=== PATIENT | male | born 1935 | race Caucasian/White ===

== ENCOUNTER → 2016-12-04 | Outpatient (CLI) | payer OTHER, BC ==
[~2016-12-04] VITALS: Ht 167.6 cm; Wt 102.7 kg
[~2016-12-04] MED LIST: ADULT LOW DOSE81 MG PO; B12INJ IM; BIOFREEZE PAI3840 GM; CALTRATE-600 W1 EACH PO; CARVEDILOL25 MG PO; COREG25 MG; CRESTOR PO; FISH OIL 1,001000 M2 PO; LISINOPRIL10 MG PO; MAGNESIUM250 M1 PO; MULTIVITAMINS PO; NEURONTIN 300300 M1 PO; NEURONTIN 300M300 M2 PO; OXYCODONE HCL5 M1 PO; PROAIR HFA8.5 GM INTRAUTERI; ROXICODONE5 M1 PO; ROXICODONE5 M2 PO; ROXICODONE5 MG PO; SYMBICORT160 MCG/4. INH; VITAMIN B-625 MG PO; VITAMIN D400 UNI1 PO; VITAMIN E400 UNIT PO; VITAMINC500
--- NOTE | ~2016-12-04 | HPC ---
[facility] [address] [place] [address] PAIN MANAGEMENT CONSULTATION Name: GABRIEL MUÑIZ [facility] #: [facility] [id number] Admission: 12/04/16 Attend Phys: Jus Lal DO Discharge: Date of : 37 Report #: [id number] THIS REPORT FOR: //name// CC: Jus Coley III, MD DATE OF SERVICE: 12/04/2016 REFERRING PHYSICIAN: Calixto Coley III, MD. CHIEF COMPLAINT: Low back pain, right lower extremity pain with paresthesias. HISTORY OF PRESENT ILLNESS: As you know, the patient is a very pleasant 81-year-old male, who has returned today in followup visit for medication management. He feels medications are working beneficially. He is not deviated from his prescription use. He states that with the medication, he receives about 90% improvement in overall pain. He has requested refills on the medication at current dosing. He has requested no changes. He is denying any side effects with their use. He does state his functional capacity has much improved with the use of medication. Without the medications, he believes he would be debilitated. He returns today requesting refill on the medications. ALLERGIES: No known drug allergies. CURRENT MEDICATIONS: Oxycodone 5 mg up to 6 a day, gabapentin 300 mg 3 tabs t.i.d., magnesium 250 mg 2 tabs per day, carvedilol 25 mg half tab p.o. b.i.d., lisinopril 10 mg per day, albuterol 2 puffs q. 4 hours p.r.n., calcium carbonate 1 tab per day, vitamin B6 25 mg per day, vitamin E 400 units per day, multivitamin 1 tab per day, Symbicort 1 puff twice a day, aspirin 81 mg per day. SOCIAL HISTORY: The patient denies tobacco. Denies IV or illicit drug use. Denies any chronic alcohol abuse. He is accompanied by his , who is in room today. IMAGING: No new imaging available. PHYSICAL EXAMINATION: VITAL SIGNS: Blood pressure 138/82, pulse 67, respiratory rate 20, unlabored. The patient is 95% on room air, height 5 feet 6 inches tall, weight 226.4 pounds, BMI calculated 36.6. GENERAL: Well-developed, well-nourished, and well-hydrated. Exogenously obese 81-year-old male appearing his stated age. Placing current pain score at 8/10. HEENT: Normocephalic and atraumatic. Pupils are equal, round, and reactive to light. Hearing is worsening. EXTREMITIES: Show no clubbing, no cyanosis, [place] [address] PAIN MANAGEMENT CONSULTATION Name: GABRIEL MUÑIZ Hu Room #: REG [facility] Azul#: [id number] Admission: 12/04/16 Attend Phys: Jus Lal DO Discharge: Date of : 37 Report #: [id number] MUSCULOSKELETAL: Lower extremity strength equal and symmetrical at 5/5. Intact to light touch from L1 through S2 dermatomes. Seated straight leg raising negative. Supine straight leg raising positive on the left. Carla's test negative. Gait is antalgic. Utilizing a cane for ambulation. ASSESSMENT: 1. Symptomatic lumbar radiculopathy. 2. Spinal stenosis of the lumbar spine. 3. Lumbosacral spondylosis with radiculopathy. 4. Displacement of lumbar intervertebral disk with radiculopathy. 5. Facet arthropathy of lower lumbar spine. 6. Lumbar degeneration. 7. Chronic intractable pain. PLAN: 1. The patient has returned today in followup visit requesting medication management. He is denying any side effects to the medication, does feel the medications are working beneficially. The patient indicates pain at no greater than 8/10 today. This is mainly with ambulation. He is requesting refill on medications. He does not wish to undergo interventional treatments. He does not wish to consider spinal cord stimulator or surgical options at this juncture. He has returned requesting refill on medications in hopes of continued analgesic benefit for which he indicates up to 70-80% improvement in overall pain despite the 8/10 pain level reported today. 2. The patient was provided prescription of oxycodone 5 mg dose 1 tab every 3-1/2 hours p.r.n. for pain, #180 releases of today, 4 weeks from today, and 8 weeks from today. 3. The patient was provided a prescription of gabapentin 300 mg dose 3 tabs p.o. t.i.d., #270, 2 refills. 4. The patient to return to our clinic in 3 months for medication therapy, earlier if he wishes to undergo interventional treatments. By: [id number] Jus Lal DO /nt
[2016-12-04 10:29] VITALS: BP 138/82
== END ==
LOC: PAIN 06:45
DX: M47.27 Other spondylosis with radiculopathy, lumbosacral region (principal); M48.06 Spinal stenosis, lumbar region; G89.29 Other chronic pain; Z87.891 Personal history of nicotine dependence; I10 Essential (primary) hypertension

== ENCOUNTER → 2017-02-19 | Outpatient (CLI) | payer OTHER, BC ==
[~2017-02-19] VITALS: Ht 167.6 cm; Wt 101.5 kg
--- NOTE | ~2017-02-19 | HPC ---
[facility] [address] [place] [address] PAIN MANAGEMENT CONSULTATION Name: GABRIEL MUÑIZ Room #: REG [facility] Christopher.#: [id number] Admission: 02/19/17 Attend Phys: Jus Lal DO Discharge: Date of : 37 Report #: [id number] THIS REPORT FOR: //name// CC: Jus Coley DATE OF SERVICE: 02/19/2017 CHIEF COMPLAINT: Low back pain, right lower extremity pain and paresthesias. HISTORY OF PRESENT ILLNESS: As you know, patient is a 81-year-old male who returns today in followup visit for medication management. We have had a long discussion with the patient about medication therapy in the past. He does feel the medications are working beneficially. He has requested refill on medications. He is placing pain score today at around 8/10. Despite this elevated pain level, he feels medications are beneficial providing 75-80% improvement in overall symptoms. He returns today in followup visit for medication management for his symptomatic lumbar radiculopathy secondary to severe and progressively worsening spinal stenosis. He denies any side effects to his current medication therapy, wishing to continue this current dosing regimen. ALLERGIES: NO KNOWN DRUG ALLERGIES. CURRENT MEDICATIONS: Oxycodone, gabapentin, magnesium, carvedilol, lisinopril, albuterol, calcium carbonate, vitamin B, vitamin D, vitamin E, multivitamin, Symbicort and aspirin. SOCIAL HISTORY: The patient denies tobacco, IV or illicit drug use. Denies any chronic alcohol use. He is accompanied by his . IMAGING: No new imaging available. PHYSICAL EXAMINATION: VITAL SIGNS: Blood pressure 138/92, pulse 66, respiratory rate 18, unlabored. The patient is 95% on room air. BMI calculated 36.6. GENERAL: Well developed, well nourished, well hydrated 81-year-old male appearing stated age. He is placing current pain score at approximately 8/10. HEENT: Normocephalic, atraumatic. Pupils equal, round, reactive to light. Extraocular muscles are intact. Hearing is poor. EXTREMITIES: Show no clubbing, no cyanosis, no edema. MUSCULOSKELETAL: Lower extremity strength equal and symmetrical 5/5, intact to light touch from L1 through S2 dermatomes. Seated straight leg raising negative. Supine straight leg raising positive on the left. [address] [address] PAIN MANAGEMENT CONSULTATION Name: GABRIEL MUÑIZ Room #: REG [facility] Latha#: [id number] Admission: 02/19/17 Attend Phys: Jus Lal DO Discharge: Date of : 37 Report #: [id number] ASSESSMENT: 1. Symptomatic lumbar radiculopathy. 2. Spinal stenosis of lumbar spine, progressively worsening. 3. Lumbosacral spondylosis with radiculopathy. 4. Displacement of lumbar intervertebral disk with radiculopathy. 5. Facet arthropathy of lower lumbar spine. 6. Lumbar degeneration. 7. Chronic intractable pain. PLAN: 1. The patient returns today in followup visit indicating good analgesic benefit with current medications. He wishes to continue the medication as currently prescribed. Despite the fact the patient is providing a pain score today of 8/10, he states he is receiving upwards of 70% improvement in symptoms with medications. He returns today requesting specifically refills on medications. 2. The patient was provided prescription of oxycodone 5 mg dose 1 tab every 3 hours p.r.n. for pain, I have given the patient #180, releases of today, 4 weeks from today, 8 weeks from today, 3 months' worth of medication. As you are aware, we have trialed the patient on a long acting medication, but due to cost, he could not continue that therapy, he needed to reduce back to the generic oxycodone. He has been doing well with these medications. 3. The patient was provided a prescription of gabapentin 300 mg dose 3 tabs p.o. t.i.d., 900 mg 3 times a day total, 270 tablets, 2 refills. 4. The patient will return to our clinic in 3 months for ongoing medical therapy, earlier if he wishes to discuss interventional treatments. <ELECTRONICALLY SIGNED> By: Jus Lal DO 02/22/17 1359 [id number] 1317 Jus Lal DO /nt
[2017-02-19 10:07] VITALS: BP 113/61
== END | disposition home or self-care (01) ==
LOC: PAIN 07:05
DX: M54.16 Radiculopathy, lumbar region (principal); M48.06 Spinal stenosis, lumbar region; M47.817 Spondylosis without myelopathy or radiculopathy, lumbosacral region; G89.29 Other chronic pain; M51.36 Other intervertebral disc degeneration, lumbar region; M51.26 Other intervertebral disc displacement, lumbar region

== ENCOUNTER → 2017-08-27 | Outpatient (CLI) | payer OTHER, BC ==
[~2017-08-27] VITALS: Ht 172.7 cm; Wt 103.4 kg
[~2017-08-27] MED LIST changes: +LIPITOR 20 MG T20 M1 PO
--- NOTE | ~2017-08-27 | HPC ---
[facility] [address] [place] [address] PAIN MANAGEMENT CONSULTATION Name: GABRIEL MUÑIZ [facility] #: [facility] [id number] Admission: 08/27/17 Attend Phys: Jus Lal DO Discharge: Date of : 37 Report #: [id number] THIS REPORT FOR: //name// CC: Jus Coley III, MD DATE OF SERVICE: 08/27/2017 REFERRING PHYSICIAN: Calixto Coley III, MD CHIEF COMPLAINT: Low back pain, right lower extremity pain with paresthesias. HISTORY OF PRESENT ILLNESS: As you know, the patient is a very pleasant 81-year-old male who returns today in followup visit for medication management. The patient states medications are working beneficially for pain control. The patient is placing pain score no greater than 6/10, states pain is sharp and aching in sensation, exacerbated with sitting, walking and standing, improves with medications and rest. He denies new injury or new trauma that may have led to progression of symptoms. He states that medications are beneficial providing about 60-70% improvement in overall pain. Again, the patient is reporting no side effects to the medication including somnolence, decrease mental acuity, disorientation, confusion, or constipation issues. ALLERGIES: No known drug allergies. CURRENT MEDICATIONS: Gabapentin, oxycodone, magnesium, carvedilol, lisinopril, omega-3 fish oil, vitamin B12, albuterol, ascorbic acid, Biofreeze, calcium carbonate, aspirin, Symbicort, vitamin E and vitamin B6. SOCIAL HISTORY: The patient denies current tobacco use. Denies IV or illicit drug use. Denies any chronic alcohol use. He is retired. He is accompanied by his who is present in room. IMAGING: No new imaging available. 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 He has no history of rheumatoid arthritis. He does use a cane for ambulation. Thus, he is a slight fall risk, he has experienced one fall in the last 3 months. We have discussed with the patient safety protocols and improved his function with his cane while he was here today. Blood thinners, none. He does have a history of hypertension for which he is treated medically. He is on opioids, has been on opioids for years. He is under opioid contract with [facility]. His risk assessment for opioid abuse is low. Functional assessment shows 47/70, [id number] interference of daily activities secondary to pain. [facility] [address] [place] [address] PAIN MANAGEMENT CONSULTATION Name: GABRIEL MUÑIZ Room #: [facility] [id number] Admission: 08/27/17 Attend Phys: Jus Lal DO Discharge: Date of : 37 Report #: [id number] PHYSICAL EXAMINATION: VITAL SIGNS: Blood pressure 138/58, pulse 58, respiratory rate 20 and unlabored, the patient is 98% on room air, height 5 feet 8 inches tall, weight 228 pounds, and BMI calculated 34.7. GENERAL: Well-developed, well-nourished, well-hydrated 81-year-old male, he appears his stated age, placing current pain score at 6/10. HEENT: Normocephalic, atraumatic. Pupils are equal, round, and reactive to light. Extraocular muscles are intact. Hearing is decreased significantly. He is having difficulty with his hearing aids today. EXTREMITIES: Show no clubbing, no cyanosis, and no edema. MUSCULOSKELETAL: Lower extremity strength equal and symmetrical 5/5. He is intact to light touch from L1 through S2 dermatomes. Seated straight leg raising negative. Supine straight leg raising positive on the right. Carla's test negative. Modified Gaenslen's positive for axial back pain. Ankle clonus negative. ASSESSMENT: 1. Symptomatic lumbar radiculopathy. 2. Spinal stenosis of the lumbar spine. 3. Displacement of lumbar intervertebral disk with radiculopathy. 4. Lumbosacral spondylosis with radiculopathy. 5. Facet arthropathy of the lower lumbar spine. 6. Lumbar degeneration. 7. Chronic intractable pain. PLAN: 1. The patient returns today in followup visit for medication management. The patient feels medications are working beneficially for pain control. He has requested that we continue the medication at current dosing. He is denying side effects of somnolence, decrease mental acuity, disorientation, confusion, or mental slowing with the use of medication. He does have some constipation for which he treats with [id number] medications successfully. The patient overall feels he is doing well and wishes to continue therapy. 2. The patient was provided a prescription of oxycodone 5 mg dose 2 tabs 3 times a day, #180, release dates of today, 4 weeks from today, and 8 weeks from today. We had originally trial the patient on a 10 mg oxycodone dose, but the cost of medication was prohibitive, we started the 5 mg tablets for which he receives generic cost and this is much more cost effective for him. The total number of tablets 180 equates to 10 mg 3 times a day dosing and appropriate medication therapy for this patient. 3. The patient was provided a refill prescription of his gabapentin 300 mg dose 3 tabs p.o. at bedtime, given the patient #90 tablets, 2 refills, 3 months' worth of medication. 4. We will see the patient back in followup visit in 3 months for medication [facility] [address] [place] [address] PAIN MANAGEMENT CONSULTATION Name: LOGANGAILGABRIEL VERAS Hu Room #: REG CLJosh Azul#: [id number] Admission: 08/27/17 Attend Phys: Jus Lal DO Discharge: Date of : 37 Report #: [id number] therapy and to discuss other treatment options if necessary. He is always available to return for epidural injection if necessary. <ELECTRONICALLY SIGNED> By: Jus Lal DO 09/04/17 1130 0811 0834 Jus Lal DO /nt
[2017-08-27 10:14] VITALS: BP 138/58
== END ==
LOC: PAIN 07:10
DX: M48.061 Spinal stenosis, lumbar region without neurogenic claudication (principal); M51.16 Intervertebral disc disorders with radiculopathy, lumbar region; M47.27 Other spondylosis with radiculopathy, lumbosacral region; M46.86 Other specified inflammatory spondylopathies, lumbar region; G89.29 Other chronic pain

== ENCOUNTER → 2017-12-03 | Outpatient (CLI) | payer OTHER, BC ==
[~2017-12-03] VITALS: Ht 172.7 cm; Wt 104.1 kg
--- NOTE | ~2017-12-03 | HPC ---
[facility] [address] [place] [address] PAIN MANAGEMENT CONSULTATION Name: GABRIEL MUÑIZ Room #: REG [facility]ENGrzegorz.#: [id number] Admission: 12/03/17 Attend Phys: Jus Lal DO Discharge: Date of : 37 Report #: [id number] THIS REPORT FOR: //name// CC: Jus Coley III, MD DATE OF SERVICE: 12/03/2017 CHIEF COMPLAINT: Low back pain, right lower extremity pain with paresthesias. HISTORY OF PRESENT ILLNESS: As you know, the patient is a very pleasant 82-year-old male who returns today in followup visit for medication management. He feels medications are working beneficially for pain control. He states pain, no greater than 3/10. States pain medications do allow him to go about his activities of daily living. He states his pain remains sharp and aching when present, exacerbated with sitting and walking, improves with medications and rest. He returns requesting refill of medications for the next 3 months. He is denying any side effects such as somnolence, decrease in mental acuity. Disorientation or confusion with the use of therapies. ALLERGIES: No known drug allergies. CURRENT MEDICATIONS: Gabapentin, oxycodone, magnesium, carvedilol, lisinopril, omega-3 fish oil, vitamin B12, albuterol, ascorbic acid, Biofreeze, calcium carbonate, aspirin, Symbicort, vitamin E, vitamin B6 and Spiriva. SOCIAL HISTORY: The patient denies current tobacco use. He denies IV or illicit drug use. Denies any chronic alcohol use. He is retired, retired years ago, accompanied by his who is present in room today. IMAGING: No new imaging available. PQRS: The patient has osteoarthritis of the weightbearing joints, knees and hips mainly, no history of rheumatoid arthritis. He does use a cane for ambulation. He is a fall risk, but has not experienced a fall in the last 3 months. He is not on blood thinners. He is treated for hypertension. He has been on opioids for greater than 6 months and on a contract with [facility]. His opioid risk assessment is mild. Functional assessment 47/70 indicating severe interference of daily activities secondary to pain. PHYSICAL EXAMINATION: VITAL SIGNS: Blood pressure 123/65, pulse 60, respiratory rate 20, unlabored. The patient is 96% on room air. Height 5 feet 8 inches tall, weight 229.4 pounds, BMI calculated 34.9. GENERAL: Well-developed, well-nourished, well-hydrated, exogenously obese [address] [address] PAIN MANAGEMENT CONSULTATION Name: GABRIEL MUÑIZ Room #: REG [facility]#: [id number] Admission: 12/03/17 Attend Phys: Jus Lal DO Discharge: Date of : 37 Report #: [id number] 82-year-old male. He appears his stated age. He is in no acute distress, awake, alert and oriented x 3, current pain score 3/10. HEENT: Normocephalic, atraumatic. Pupils equal, round and reactive. There is noted a hyphema on the left eye lateral portion. Vision does not appear affected. Hearing is significantly decreased. He does have hearing aids in. NEUROLOGIC: He does appear to be a good historian. LUNGS: Clear. No wheeze, rhonchi or rales. CARDIOVASCULAR: Regular. No appreciable gallop or rub. ABDOMEN: Soft, obese, nontender. EXTREMITIES: Show no clubbing, no cyanosis, no edema. MUSCULOSKELETAL: Seated straight leg raising is negative. Supine straight leg raising positive right. Carla test is negative. Modified Gaenslen's is positive for axial low back pain. Ankle clonus negative. Babinski is negative. Gait is antalgic favoring right lower extremity over left. Muscle bulk and tone appears symmetrical in lower extremities. ASSESSMENT: 1. Symptomatic lumbar radiculopathy. 2. Spinal stenosis of the lumbar spine. 3. Displacement of lumbar intervertebral disk with radiculopathy. 4. Lumbosacral spondylosis with radiculopathy. 5. Facet arthropathy of lumbar spine. 6. Degeneration of lumbar spine. 7. Chronic intractable pain. PLAN: 1. The patient returns today in followup visit requesting refill on medications. The patient feels medications are working beneficially for pain control. The patient indicates pain level of around 3/10 today, which is excellent for the patient. He states this is completely tolerable level of pain and wishes to continue current medical therapy. He is denying side effects of somnolence, decrease in mental acuity, disorientation and confusion with the use of therapy. He requests refills for the next 3 months. 2. The patient was provided prescription of oxycodone 5 mg dose 2 tabs 3 times a day, #180 releases of today, 4 weeks from today, 8 weeks from today. The patient was originally trialed on the oxycodone 10 mg dose, but due to cost factor, he could not afford the 10 mg dose without acetaminophen. He wished to have Tylenol removed from the medication. We were able to provide the 5 mg dose, #180 tablets. His morphine equivalent is 45 morphine equivalents per day. 3. The patient will return to our clinic on an as needed basis for interventional treatments, otherwise, we will see him back in 3 months for medication management assuming stable on his medications at that time. By: [id number] Jus Lal DO /nt
[2017-12-03 10:35] VITALS: BP 123/65
== END ==
LOC: PAIN 06:15
DX: M47.27 Other spondylosis with radiculopathy, lumbosacral region (principal)

== ENCOUNTER → 2018-03-12 | Outpatient (CLI) | payer OTHER, BC ==
[~2018-03-12] VITALS: Ht 172.7 cm; Wt 101.7 kg
--- NOTE | ~2018-03-12 | HPC ---
[facility] [address] [place] [address] PAIN MANAGEMENT CONSULTATION Name: GABRIEL MUÑIZ Room #: REG [facility] Christopher.#: [id number] Admission: 03/12/18 Attend Phys: Jus Lal DO Discharge: Date of : 39 Report #: [id number] THIS REPORT FOR: //name// CC: Jus Coley DATE OF SERVICE: 03/12/2018 CHIEF COMPLAINT: Low back pain, bilateral lower extremity pain right greater than left. HISTORY OF PRESENT ILLNESS: As you know, the patient is a very pleasant 82-year-old male who returns today in followup visit for medication management. He feels medications are working beneficially for pain control. He is placing pain score at level of 6/10. He does report worsening difficulty with ambulating long distances and standing for long periods of time. This appears to be a progression of his spinal stenosis and subsequent symptomology. There is a possibility the patient does have bilateral hip arthropathy, though this has not been noted in imaging studies. He returns today in followup visit requesting refill on medications. He is denying any side effects with their use. He does find benefit with their continued use for pain control. ALLERGIES: No known drug allergies. CURRENT MEDICATIONS: Gabapentin, hydrocodone, magnesium, carvedilol, lisinopril, omega-3 fish oil, vitamin B12, albuterol, ascorbic acid, Biofreeze, calcium carbonate, aspirin, Symbicort, vitamin E, vitamin B6 and Spiriva. SOCIAL HISTORY: The patient denies current tobacco use. Denies IV or illicit drug use. Denies any chronic alcohol use. He is retired, has been retired for years. He is accompanied by his present in room today. IMAGING: No new imaging available. PQRS: The patient has osteoarthritis of the knees, reportedly hips and low back. No history of rheumatoid arthritis. He does use a cane for ambulation. He is a fall risk, but has not fallen in the last 3 months. He is not on blood thinners. He is treated for hypertension. He has been on opioids for greater than six months and has been in contract with [facility]. He has a low risk for opioid addiction. His functional assessment pain impact score is 47/70, severe. K-TRACS and MO-TRACS were performed today. The patient shows no concerning entries in these opioid tracking systems. [address] [address] PAIN MANAGEMENT CONSULTATION Name: GABRIEL MUÑIZ Room #: REG CLJosh Azul#: [id number] Admission: 03/12/18 Attend Phys: Jus Lal DO Discharge: Date of : 37 Report #: [id number] PHYSICAL EXAMINATION: VITAL SIGNS: Blood pressure 112/63, pulse 65, respiratory rate 16 and unlabored. The patient is 95% on room air. Height 5 feet 8 inches tall, weight 224.2 pounds, BMI calculated 34.1. GENERAL: Well-developed, well-nourished, well-hydrated exogenously obese 82-year-old male. He appears stated age, placing current pain score 6/10. HEENT: Normocephalic, atraumatic. Pupils equal, round, reactive to light. Speech fluent. Hearing is significantly decreased. EXTREMITIES: Show no clubbing, no cyanosis, no edema. MUSCULOSKELETAL: Seated straight leg raising negative. Supine straight leg raising remains positive on the right, negative left. Carla's test negative except for some upper buttock pain. Modified Gaenslen's positive for axial low back pain. ASSESSMENT: 1. Symptomatic lumbar radiculopathy. 2. Progressively worsening spinal stenosis of the lumbar spine. 3. Displacement of lumbar intervertebral disk with radiculopathy. 4. Lumbosacral spondylosis with radiculopathy. 5. Facet arthropathy of the lumbar spine. 6. Lumbar degeneration. 7. Chronic intractable pain. PLAN: 1. The patient returns today in followup visit for medication management. He feels medications are working beneficially for pain control. He is denying any side effects to the oxycodone or the gabapentin therapy and does feel good benefit with their use. He wishes to continue the medication at this time. We reviewed the fact that opiate medications are being used to provide analgesia adequate to support activities of daily living, not attempting to achieve a specific pain score on the 0-10 Visual Analog Scale. The current opiate medications are providing sufficient analgesia to allow the patient to participate in activities of daily living. The patient is not exhibiting any aberrant behavior suggestive of drug diversion. The patient is not having any adverse reactions to medications. The patient is not suffering from daytime somnolence or mental acuity changes. The patient is managing opiate-induced constipation with appropriate amqg-xmd-silixuq agents and dietary considerations. The patient was counseled on concern for caution with operating a motor vehicle while using opiate medications. A physical exam was performed and the patient's functional status was evaluated. All patients with back pain were advised against the bed rest greater than 4 days and were advised to return to normal activities. Pain score assessment was noted and the treatment plan was reviewed with the patient. All current medications, both prescribed and OTC were reviewed and reconciled on the [address] [address] PAIN MANAGEMENT CONSULTATION Name: GABRIEL MUÑIZ Room #: REG [facility]#: [id number] Admission: 03/12/18 Attend Phys: Jus Lal DO Discharge: Date of : 37 Report #: [id number] electronic medical record. Tobacco screening was accomplished and smoking cessation was advised when indicated. BMI was noted and diet/exercise modification was recommended for all patients following outside normal parameters. I reviewed with the patient today their responsibilities to safeguard prescription medications, reviewed their responsibility to utilize medications only as prescribed by the physician. They are to seek and receive pain medications only from 1 physician group ( [facility]). They are to use 1 pharmacy and keep the clinic informed if they change pharmacies. Their responsibilities include making followup visits in a timely fashion and to avoid abrupt discontinuation of medication usage. Their responsibilities further include bringing their medications (bottles from the pharmacy with residual pills) to the visit for possible confirmation of pill counts and the patient understands it is their responsibility to submit to random drug screens to ensure both that the medications prescribed are present, and that no other controlled substances are present. All prescriptions provided today were generated electronically. 2. The patient was provided prescription of oxycodone 5 mg dose 1 tab every 4 hours p.r.n. pain, I have given the patient #180, releases of today, 4 weeks from today, 8 weeks from today, 3 months' worth of medication. I have advised the patient at this time our concerns about the continued use of immediate release formulation. Unfortunately, the patient cannot afford the long-acting formulations of medications as they are not covered by his insurance. We had to resort to the oxycodone at the immediate release formulation to be able to provide the patient with benefit. 3. We have called in a prescription of the patient's gabapentin 300 mg dose 3 tabs p.o. t.i.d., number 270. He was given 2 refills, 3 months' worth of medication. 4. We will see the patient back in followup visit in 3 months, earlier if adjustments need to be made in medication therapy or he continues to experience worsening functional capacity and we will discuss about other options including epidural injections and surgical options. By: [id number] Jus Lal DO /nt
[2018-03-12 10:07] VITALS: BP 112/63
== END ==
LOC: PAIN 06:58
DX: M47.27 Other spondylosis with radiculopathy, lumbosacral region (principal); M51.16 Intervertebral disc disorders with radiculopathy, lumbar region; M12.88 Other specific arthropathies, not elsewhere classified, other specified site; G89.4 Chronic pain syndrome

== ENCOUNTER → 2018-06-18 | Outpatient (CLI) | payer OTHER, BC ==
[~2018-06-18] VITALS: Ht 172.7 cm; Wt 101.6 kg
--- NOTE | ~2018-06-18 | HPC ---
[facility] [address] [place] [address] PAIN MANAGEMENT CONSULTATION Name: GABRIEL MUÑIZ Room #: [facility] [id number] Admission: 06/18/18 Attend Phys: Jus Lal DO Discharge: Date of : 37 Report #: [id number] THIS REPORT FOR: //name// CC: Jus Coley III, MD DATE OF SERVICE: 06/18/2018 CHIEF COMPLAINT: Low back pain, bilateral lower extremity pain, right greater than left. HISTORY OF PRESENT ILLNESS: As you know, the patient is a very pleasant 82-year-old male returning in followup visit for continuation of medication management. The patient feels medications are working beneficially for pain control despite the elevated pain level of 6/10 today. He reports no side effects to the medication except for transient constipation, he treats with mxpu-mxu-qvavxwl medications successfully. He returns today requesting refill on medications. He states he has been in his normal state of health over the past 3 months. Cold weather has exacerbated his symptoms mildly but nothing to be concerned of based on the patient's report today. He returns today requesting refill on his therapy. ALLERGIES: No known drug allergies. CURRENT MEDICATIONS: Gabapentin, hydrocodone, magnesium, carvedilol, lisinopril, omega-3 fish oil, vitamin B12, albuterol, ascorbic acid, Biofreeze, calcium carbonate, aspirin, Symbicort, vitamin E, vitamin B6, Spiriva and oxycodone. SOCIAL HISTORY: The patient denies tobacco use. Denies IV or illicit drug use. Denies any chronic alcohol use. He is retired, retired years ago, accompanied by his who was present in room today. IMAGING: No new imaging available. PQRS: The patient has known bilateral low back osteoarthritis, bilateral hip osteoarthritis and bilateral knee osteoarthritis, no rheumatoid arthritis. He does use a cane for ambulation. He is a fall risk, but has not had a fall in last 3 months. He is not on blood thinners. He is treated for hypertension. He has been on opioids for greater than 6 weeks with a xxzm-yh-bhewdopt potential for addiction. Pain impact score indicates pain of 47/70, moderate to severe. Pain intensity today /10. PHYSICAL EXAMINATION: VITAL SIGNS: Blood pressure 112/63, pulse 65, respiratory rate 16 and [facility] [address] [place] [address] PAIN MANAGEMENT CONSULTATION Name: GABRIEL MUÑIZ Room #: REG [facility] M.Dale.#: [id number] Admission: 06/18/18 Attend Phys: Jus Lal DO Discharge: Date of : 37 Report #: [id number] unlabored. The patient is 95% on room air. Height 5 feet 8 inches tall, weight 224.2 pounds, BMI calculated 34.1. GENERAL: Well-developed, well-nourished, well-hydrated, exogenously obese 82-year-old male appearing stated age, placing current pain score 6/10. HEENT: Normocephalic, atraumatic. Pupils equal, round, reactive to light. Speech is fluent. Hearing decreased significantly. Hearing aids are in place. LUNGS: Clear, no wheeze, rhonchi or rales. CARDIOVASCULAR: Regular. No appreciable gallop, no rub. ABDOMEN: Soft, obese, nontender. EXTREMITIES: Show no clubbing, no cyanosis, no edema. MUSCULOSKELETAL: Lower extremity strength is symmetrical 5/5, muscle bulk and tone is symmetrical. He is intact to light touch from L1 through S2 dermatomes. Seated straight leg raising negative. Supine straight leg raising positive on right. Gait is antalgic favoring right lower extremity over left. Standing from a seated position exacerbates symptoms. ASSESSMENT: 1. Symptomatic lumbar radiculopathy. 2. Progressively worsening spinal stenosis of the lumbar spine. 3. Displacement of lumbar intervertebral disk with radiculopathy. 4. Lumbosacral spondylosis with radiculopathy. 5. Facet arthropathy of the lumbar spine. 6. Lumbar degeneration. 7. Chronic intractable pain. PLAN: 1. The patient returns today in followup visit requesting refill on medication. He feels medications are working beneficially for pain control. He has requested refills to be provided today to continue analgesic benefit. He reports only mild constipation issues that are intermittent in nature, he treats with jmvv-fff-aejswpy medications with good success. He returns requesting the refills on the medication. 2. We reviewed the fact that opiate medications are being used to provide analgesia adequate to support activities of daily living, not attempting to achieve a specific pain score on the 0-10 Visual Analog Scale. The current opiate medications are providing sufficient analgesia to allow the patient to participate in activities of daily living. The patient is not exhibiting any aberrant behavior suggestive of drug diversion. The patient is not having any adverse reactions to medications. The patient is not suffering from daytime somnolence or mental acuity changes. The patient is managing opiate-induced constipation with appropriate vpqu-kaj-dfryocd agents and dietary considerations. The patient was counseled on concern for caution with operating a motor vehicle while using opiate medications. A physical exam was performed and the patient's functional status was evaluated. All patients with back pain were advised against the bed rest greater than [address] [address] PAIN MANAGEMENT CONSULTATION Name: GABRIEL MUÑIZ Room #: REG [facility]#: [id number] Admission: 06/18/18 Attend Phys: Jus Lal DO Discharge: Date of : 37 Report #: [id number] days and were advised to return to normal activities. Pain score assessment was noted and the treatment plan was reviewed with the patient. All current medications, both prescribed and OTC were reviewed and reconciled on the electronic medical record. Tobacco screening was accomplished and smoking cessation was advised when indicated. BMI was noted and diet/exercise modification was recommended for all patients following outside normal parameters. I reviewed with the patient today their responsibilities to safeguard prescription medications, reviewed their responsibility to utilize medications only as prescribed by the physician. They are to seek and receive pain medications only from 1 physician group ( [facility]). They are to use 1 pharmacy and keep the clinic informed if they change pharmacies. Their responsibilities include making followup visits in a timely fashion and to avoid abrupt discontinuation of medication usage. Their responsibilities further include bringing their medications (bottles from the pharmacy with residual pills) to the visit for possible confirmation of pill counts and the patient understands it is their responsibility to submit to random drug screens to ensure both that the medications prescribed are present, and that no other controlled substances are present. All prescriptions provided today were generated electronically. 3. The patient was provided prescription of oxycodone 5 mg dose 1 tab every 4 hours p.r.n. for pain, I have given the patient #180 tablets releasing today, 4 weeks from today, 8 weeks from today, 3 months' worth of medication. Again, we discussed the possibility of placing the patient on long-acting medication, but using third alliance party payer, he is unwilling to cover this medication and the cost is prohibitive. We will keep the patient on oxycodone 5 mg immediate release formulation. 4. The patient was provided prescription of gabapentin 300 mg dose 3 tabs p.o. t.i.d., I have given the patient #270 tablets, 2 refills, 3 months' worth of medication. 5. The patient will return to our clinic in 3 months for medication management. He may return earlier for adjustments in therapy if necessary. By: [id number] Jus Lal DO /nt
[2018-06-18 10:48] VITALS: BP 144/64
== END ==
LOC: PAIN 06:36
DX: M54.5 Low back pain (principal); M25.551 Pain in right hip; M25.552 Pain in left hip; G89.29 Other chronic pain; M79.604 Pain in right leg; M19.90 Unspecified osteoarthritis, unspecified site; Z87.891 Personal history of nicotine dependence; Z79.891 Long term (current) use of opiate analgesic; Z79.899 Other long term (current) drug therapy

== ENCOUNTER → 2018-10-23 | Outpatient (CLI) | payer OTHER, BC ==
[~2018-10-23] VITALS: Ht 172.7 cm; Wt 87.1 kg
[2018-10-23 13:17] VITALS: BP 143/76
--- NOTE | 2018-10-23 13:25 | NUR ---
Pain Clinic Assessment: 1. History of Osteoarthritis: spine History of Rheumatoid Arthritis: Not Applicable 2. Height: 5 ft. 8 in. 172.7 cm. Weight: 192.0 lb. oz. 87.091 kg. Patient's BMI: 29.2 3. Vital Signs: BP: 143/76 Pulse: 71 Resp: 16 Temp: 02 Sat: 100 ECG Mon: 4. Pain Intensity: 1 5. Fall Risk: Dizziness: N Needs help standing or walking: N Fallen in the last 3 months: N Fall risk comments: 6. Patient on Blood Thinner: None 7. History of Hypertension: Y 8. Opioid Therapy greater than 6 weeks: Y Opiate Contract Signed: 02/21/16 9. Risk Assessment Tool Provided: 0-low 10. Functional Assessment Tool: 11. Recreational Drug Use: Never Drug Type: Tobacco Use: Former Smoker Tobacco Type: Amount or Packs/day: How Many Years: Alcohol Use: No Frequency: Quant:
--- NOTE | 2018-10-27 08:01 | HPC ---
[facility] [address] [place] [address] PAIN MANAGEMENT CONSULTATION Name: GABRIEL MUÑIZ Room #: REG [facility] Latha#: [id number] Admission: 10/23/18 ������������������ Attend Phys: Cherie Olmedo Discharge: ������������������ Date of : 37 Report #: [id number] THIS REPORT FOR: //name// CC: Cherie Olmedo [facility] DATE OF SERVICE: 10/23/2018 CHIEF COMPLAINT: Low back pain. HISTORY OF PRESENT ILLNESS: This is a very pleasant 83-year-old gentleman who returns to the pain clinic today for refill of his medications. He tells me that he is doing quite well with his current medications for his lower back and bilateral hip pain, rating his pain score as 1/10. Said it is worse when he is walking and sitting. The medication and resting make it feel better. He does tell me with his 's help due to his hearing issues that he will be getting a cochlear implant in the next few months. We are using a dry erase board to help communicate today. Evidently, this gentleman had had a rash that started in his legs that then spread to his arms and then to his abdomen and soon was the entire body. He did go to [facility] where he was admitted. His legs at that time had swollen quite significantly and were oozing from open sores in his lower legs. While he was there, he evidently fell and then went to a rehab center where his legs slowly got better. Today, they are slightly reddened with no edema. The patient tells me he has also changed his diet since that hospitalization in the past month and he is feeling much better. The patient denies any constipation from his narcotic use and just would like a refill of his medications today. ALLERGIES: No known drug allergies. CURRENT LIST OF MEDICATIONS: Oxycodone 5 mg 2 tablets 3 times a day, gabapentin 900 mg 3 times a day, magnesium 250 mg daily, carvedilol 12.5 mg b.i.d., fish oil 1000 mg capsules weekly, vitamin B12 daily, albuterol inhaler as needed, vitamin C daily, Caltrate 600 with vitamin D daily, vitamin B6 weekly, vitamin E every 2 weeks, multivitamin daily, 81 mg aspirin daily. PQRS: 1. The patient has osteoarthritis of his spine. He denies any rheumatoid arthritis. 2. Height is 5 feet 8 inches, weight is 192, BMI is 29. 3. Vital signs: 143/76, pulse is 71, respirations 16, oxygen sat is 100%. Pain score today is 1/10. 4. Fall risk: He denies dizziness. He uses a cane for walking and he did fall in the hospital in the last 3 months. 4. The patient is not on any blood thinners, does take medicine for hypertension. [facility] [address] [place] [address] PAIN MANAGEMENT CONSULTATION Name: GABRIEL MUÑIZ Room #: REG [facility] Azul#: [id number] Admission: 10/23/18 ������������������ Attend Phys: Cherie Olmedo Discharge: ������������������ Date of : 37 Report #: [id number] 5. Opioid therapy is greater than 6 weeks; therefore, an opioid signed contract is on the chart. 6. Risk assessment tool is low. Functional assessment is . 7. Recreational drug use, he denies. He is a former smoker and does not drink alcohol. We checked the prescription monitoring system. The patient is filling appropriately with his medications from our doctors. The tells me that he safeguards his medications. PHYSICAL EXAMINATION: GENERAL: This is a well-developed, well-nourished, well-hydrated 83-year-old gentleman who appears his stated age, placing his current pain score as 1/10 today. HEENT: Normocephalic, atraumatic. Pupils are equal, round and reactive to light. The patient is significantly hard of hearing with hearing aids in place, awaiting cochlear implant. EXTREMITIES: No clubbing, no cyanosis. Does have 1+ edema with redness noted in his lower extremities. MUSCULOSKELETAL: Lower extremity strength judged to be 5/5. Muscle bulk and tone are symmetrical. Gait is antalgic, using a cane today, standing from a sitting position does cause pain across his lower back and to his sacroiliac area. ASSESSMENT: 1. Symptomatic lumbar radiculopathy. 2. Spinal stenosis of the lumbar spine. 3. Displacement of lumbar vertebral disk with radiculopathy. 4. Facet arthroscopy of the lumbar spine. 5. Lumbar degeneration. 6. Chronic intractable pain. We reviewed the fact that opiate medications are being used to provide analgesia adequate to support activities of daily living, not attempting to achieve a specific pain score on the 0-10 Visual Analog Scale. The current opiate medications are providing sufficient analgesia to allow the patient to participate in activities of daily living. The patient is not exhibiting any aberrant behavior suggestive of drug diversion. The patient is not having any adverse reactions to medications. The patient is not suffering from daytime somnolence or mental acuity changes. The patient is managing opiate-induced constipation with appropriate obhv-hwf-kxdbsks agents and dietary considerations. The patient was counseled on concern for caution with operating a motor vehicle while using opiate medications. A physical exam was performed and the patient's functional status was evaluated. All patients with back pain were advised against the bed rest greater than [address] [place] [address] PAIN MANAGEMENT CONSULTATION Name: GABRIEL MUÑIZ Room #: REG [facility].#: [id number] Admission: 10/23/18 ������������������ Attend Phys: Cherie ADMISSIONS DEAN Shara Discharge: ������������������ Date of : 37 Report #: [id number] days and were advised to return to normal activities. Pain score assessment was noted and the treatment plan was reviewed with the patient. All current medications, both prescribed and OTC were reviewed and reconciled on the electronic medical record. Tobacco screening was accomplished and smoking cessation was advised when indicated. BMI was noted and diet/exercise modification was recommended for all patients following outside normal parameters. I reviewed with the patient today their responsibilities to safeguard prescription medications, reviewed their responsibility to utilize medications only as prescribed by the physician. They are to seek and receive pain medications only from 1 physician group ( [facility]). They are to use 1 pharmacy and keep the clinic informed if they change pharmacies. Their responsibilities include making followup visits in a timely fashion and to avoid abrupt discontinuation of medication usage. Their responsibilities further include bringing their medications (bottles from the pharmacy with residual pills) to the visit for possible confirmation of pill counts and the patient understands it is their responsibility to submit to random drug screens to ensure both that the medications prescribed are present, and that no other controlled substances are present. All prescriptions provided today were generated electronically. PLAN: 1. We discussed treatment options with the patient today. The patient and family tell me that he is doing quite well on his current oxycodone dose of 5 mg 1-2 tablets 3 times a day and gabapentin 900 mg 3 times a day. I would like refills of both of those medicines today. They were provided for today for 8-week releases. 2. We did talk about this patient's rash that he had in his lower extremities that did eventually go throughout his rest of his body and the swelling that was noted in his legs. I told him that sometimes Neurontin does cause edema in lower extremities. told me that he was eating significant amounts of sodium high foods since his hospitalization they have decreased those plus his swelling has decreased since they changed his diet significantly. The patient has also been able to decrease 2 of his cardiac medications that he had started on previously, so therefore we will make no changes in his medications today, but just to keep them reminded that in the future that may cause swelling as a possible side effect. 3. The patient is seen with Dr. Plata who collaborated care today also. ��������������������������������������������� <ELECTRONICALLY SIGNED> ���������������������������������������� By: Cherie Olmedo ��������������������������������������������� 10/27/18 0801 [id number] Cherie Olmedo /ryan
== END ==
LOC: PAIN 10-21 13:40
DX: M51.16 Intervertebral disc disorders with radiculopathy, lumbar region (principal); M48.061 Spinal stenosis, lumbar region without neurogenic claudication; G89.4 Chronic pain syndrome; Z79.899 Other long term (current) drug therapy

== ENCOUNTER → 2019-05-12 | Outpatient (CLI) | payer OTHER, BC ==
[~2019-05-12] VITALS: Ht 175.3 cm; Wt 82.2 kg
[~2019-05-12] MED LIST changes: +NEURONTIN300 MG PO; +TRIAMCINOLONE A15 G3 TOP
[2019-05-12 11:06] VITALS: BP 111/55
--- NOTE | 2019-05-12 11:12 | NUR ---
Pain Clinic Assessment: 1. History of Osteoarthritis: spine History of Rheumatoid Arthritis: Not Applicable 2. Height: 5 ft. 9 in. 175.3 cm. Weight: 181.2 lb. oz. 82.192 kg. Patient's BMI: 26.7 3. Vital Signs: BP: 111/55 Pulse: 67 Resp: 16 Temp: 02 Sat: 95 ECG Mon: 4. Pain Intensity: 6 5. Fall Risk: Dizziness: N Needs help standing or walking: Y Fallen in the last 3 months: N Fall risk comments: 6. Patient on Blood Thinner: None 7. History of Hypertension: Y 8. Opioid Therapy greater than 6 weeks: Y Opiate Contract Signed: 02/21/16 9. Risk Assessment Tool Provided: 0-low 10. Functional Assessment Tool: 11. Recreational Drug Use: Never Drug Type: Tobacco Use: Former Smoker Tobacco Type: Amount or Packs/day: How Many Years: Alcohol Use: No Frequency: Quant:
--- NOTE | 2019-05-13 08:34 | HPC ---
[facility] [address] [place] [address] PAIN MANAGEMENT CONSULTATION Name: GABRIEL MUÑIZ Room #: REG [facility] Christopher.#: [id number] Admission: 05/12/19 Attend Phys: Cherie Olmedo Discharge: Date of : 37 Report #: [id number] THIS REPORT FOR: //name// CC: Cherie Olmedo [facility] DATE OF SERVICE: 05/12/2019 CHIEF COMPLAINT: Low back pain and bilateral hip pain. HISTORY OF PRESENT ILLNESS: This is a very pleasant 83-year-old gentleman who returns to the pain clinic today for a refill of his medications that he uses to help treat his ongoing low back, bilateral hip pain and left leg pain. He reports a pain score of 6/10 today that is an aching, sharp pain, worse when he walks and stands and weather changes. His medication is very helpful as well as resting. The patient tells me that he has been having significant respiratory issues with the weather changes recently that has also flared some of his pain with the weather changes, so his pain score is slightly higher than normal. He also reports that he continues to lose weight. He is down a total of 40 pounds since November due to significant diet change of no longer eating ice cream or fatty foods and reducing the plate size that they use at dinner time. He feels much better since he has lost this weight. ALLERGIES: No known drug allergies. CURRENT LIST OF MEDICATIONS: Gabapentin 900 mg t.i.d., oxycodone 5 mg 2 tablets t.i.d., triamcinolone ointment, magnesium, carvedilol 12.5 mg b.i.d., fish oil, vitamin B12, vitamin C, Carafate, vitamin B6, vitamin E, multivitamin and aspirin. PQRS: 1. He has arthritic changes in his spine. Denies any rheumatoid arthritis. 2. Height is 5 feet 9 inches, weight is 181, BMI is 26. 3. Vital signs 111/55, pulse is 67, respirations 16, oxygen sat is 95. 4. Pain score 6/10. 5. Denies dizziness. Does need help walking, uses a cane, has not fallen in the last 3 months. The patient is not on any blood thinners, but does take medicine for hypertension. 6. Opioid therapy is greater than 6 weeks; therefore, an opioid signed contract is on the chart. Risk assessment tool is low. Functional assessment is 10/02. 7. Recreational drug use, he denies. He is a former smoker and does not drink alcohol. According to the prescription monitoring system, the patient is filling [address] [address] PAIN MANAGEMENT CONSULTATION Name: GABRIEL MUÑIZ Room #: REG [facility] Latha#: [id number] Admission: 05/12/19 Attend Phys: Cherie Olmedo Discharge: Date of : 37 Report #: [id number] appropriately and is due today for his medications. We will check a random drug screen on this patient in the future. PHYSICAL EXAMINATION: GENERAL: This is a well-developed, well-nourished, hydrated 83-year-old gentleman who appears his stated age, placing his current pain score at 6/10 today. HEENT: Normocephalic, atraumatic. Pupils equal, round and reactive to light. The patient has hearing aids in place, still has significant hearing deficits. EXTREMITIES: No clubbing, no cyanosis, no edema. MUSCULOSKELETAL: Lower extremity strength judged to be 5/5 in all major muscle groups. He has an antalgic gait and uses a cane at all times. Tenderness in his left sacroiliac region today that is radiating into his right hip and tenderness across his lumbosacral spine. ASSESSMENT: 1. Symptomatic lumbar radiculopathy. 2. Spinal stenosis of the lumbar spine. 3. 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 4. Facet arthroscopy of the lumbar spine. 5. Lumbar degeneration. 6. Chronic intractable pain. We reviewed the fact that opiate medications are being used to provide analgesia adequate to support activities of daily living, not attempting to achieve a specific pain score on the 0-10 Visual Analog Scale. The current opiate medications are providing sufficient analgesia to allow the patient to participate in activities of daily living. The patient is not exhibiting any aberrant behavior suggestive of drug diversion. The patient is not having any adverse reactions to medications. The patient is not suffering from daytime somnolence or mental acuity changes. The patient is managing opiate-induced constipation with appropriate rsnr-ckq-ybksnlb agents and dietary considerations. The patient was counseled on concern for caution with operating a motor vehicle while using opiate medications. A physical exam was performed and the patient's functional status was evaluated. All patients with back pain were advised against the bed rest greater than 4 days and were advised to return to normal activities. Pain score assessment was noted and the treatment plan was reviewed with the patient. All current medications, both prescribed and OTC were reviewed and reconciled on the electronic medical record. Tobacco screening was accomplished and smoking cessation was advised when indicated. BMI was noted and diet/exercise modification was recommended for all patients following outside normal parameters. I reviewed with the patient today their responsibilities to [address] [address] PAIN MANAGEMENT CONSULTATION Name: GABRIEL MUÑIZ Room #: REG [facility]#: [id number] Admission: 05/12/19 Attend Phys: Cherietony MIRANDA Shara Discharge: Date of : 37 Report #: [id number] prescription medications, reviewed their responsibility to utilize medications only as prescribed by the physician. They are to seek and receive pain medications only from 1 physician group ( [facility]). They are to use 1 pharmacy and keep the clinic informed if they change pharmacies. Their responsibilities include making followup visits in a timely fashion and to avoid abrupt discontinuation of medication usage. Their responsibilities further include bringing their medications (bottles from the pharmacy with residual pills) to the visit for possible confirmation of pill counts and the patient understands it is their responsibility to submit to random drug screens to ensure both that the medications prescribed are present, and that no other controlled substances are present. All prescriptions provided today were generated electronically. PLAN: 1. We discussed treatment options with the patient today, feels that the oxycodone helps him significantly with his pain. He does not experience any problems with constipation or daytime sleepiness from this medicine and he feels that it keeps him active as he is wanting to be. Scripts were renewed for oxycodone 5 mg 2 tablets 3 times a day #180 for today, 4-week and 8-week release. 2. Gabapentin 300 mg t.i.d. #270 with 2 additional refills given. 3. According to the CDC guidelines patient's morphine mEq is 45 per day, well under the CDC guidelines. 4. Dr. Jus Lal did see the patient as well today and collaborated care. The patient will return in 3 months. <ELECTRONICALLY SIGNED> By: Cherie Olmedo 05/13/19 0834 [id number] 0015 Cherie Olmedo /nt
== END ==
LOC: PAIN 06:54
DX: M48.061 Spinal stenosis, lumbar region without neurogenic claudication (principal); M51.16 Intervertebral disc disorders with radiculopathy, lumbar region; M12.88 Other specific arthropathies, not elsewhere classified, other specified site; G89.4 Chronic pain syndrome

== ENCOUNTER → 2019-08-18 | Outpatient (CLI) | payer OTHER, BC ==
[~2019-08-18] VITALS: Ht 175.3 cm; Wt 81.7 kg
[2019-08-18 10:22] VITALS: BP 132/93
--- NOTE | 2019-08-18 10:28 | NUR ---
Pain Clinic Assessment: 1. History of Osteoarthritis: BACK History of Rheumatoid Arthritis: Not Applicable 2. Height: 5 ft. 9 in. 175.3 cm. Weight: 180.2 lb. oz. 81.738 kg. Patient's BMI: 26.6 3. Vital Signs: BP: 132/93 Pulse: 66 Resp: 16 Temp: 02 Sat: 98 ECG Mon: 4. Pain Intensity: 4 5. Fall Risk: Dizziness: N Needs help standing or walking: N Fallen in the last 3 months: N Fall risk comments: 6. Patient on Blood Thinner: None 7. History of Hypertension: Y 8. Opioid Therapy greater than 6 weeks: Y Opiate Contract Signed: 02/21/16 9. Risk Assessment Tool Provided: 0-low 10. Functional Assessment Tool: 11. Recreational Drug Use: Never Drug Type: Tobacco Use: Former Smoker Tobacco Type: Amount or Packs/day: How Many Years: Alcohol Use: No Frequency: Quant:
--- NOTE | 2019-08-19 08:54 | HPC ---
[facility] [address] [place] [address] PAIN MANAGEMENT CONSULTATION Name: GABRIEL MUÑIZ Room #: REG [facility] Christopher.#: [id number] Admission: 08/18/19 Attend Phys: Cherie Olmedo Discharge: Date of : 37 Report #: [id number] THIS REPORT FOR: //name// CC: Cherie Hawley III, MD DATE OF SERVICE: 08/18/2019 CHIEF COMPLAINT: Low back pain and bilateral hip pain. HISTORY OF PRESENT ILLNESS: This is a very pleasant 83-year-old gentleman who is here with his today for a medication refill that he takes for his ongoing low back pain that radiates into his hips and into his left leg. He is reporting that he is doing quite well today on his current medication regimen, rating his pain score at 4/10. It is worse with weather changes and prolonged walking, but he feels as long as he takes his oxycodone, he is doing quite well. He characterizes his pain as an aching, numbness and tingly feeling in his back and leg. The patient is not feeling overmedicated or having problems with constipation as a result of his medications. ALLERGIES: No known drug allergies. CURRENT LIST OF MEDICATIONS: Gabapentin 900 mg t.i.d., oxycodone 10 mg t.i.d., magnesium, carvedilol, fish oil, vitamin B, vitamin C, Caltrate, and vitamin B6 and 81 mg aspirin. PQRS: 1. He has arthritic changes in his lumbar spine. Denies any rheumatoid arthritis. 2. Height is 5 feet 9 inches, weight is 180, BMI is 26. 3. Vital Signs: 132/93, pulse is 66, respirations 16, oxygen sat is 98. 4. Pain score is 4/10. 5. Denies dizziness, does not need help walking or standing, has not fallen in the last 3 months. 6. The patient is not on any blood thinners and does take medicines for hypertension. 7. Opiate therapy is greater than 6 weeks; therefore, an opioid signed contract is on the chart. 8. Risk assessment tool is low. 9. Functional assessment is . 10. Recreational drug use, he denies. He is a former smoker and does not drink alcohol. According to the prescription monitoring system, the patient is due to fill his [facility] [address] [address] PAIN MANAGEMENT CONSULTATION Name: GABRIEL MUÑIZ Room #: REG [facility] Azul#: [id number] Admission: 08/18/19 Attend Phys: Cherie Olmedo Discharge: Date of : 37 Report #: [id number] medication today. He is filling them in a timely fashion. We did discuss his morphine mEq is 45 according to the CDC guidelines well within the limits and we also discussed the filling at one pharmacy since we will be e-prescribing his medications today. He reports occasionally they do not have enough of his medicine. He is worried about this today. We had quite a lengthy discussion encouraging him only to use the [facility] and hopefully they will order enough for him each month. PHYSICAL EXAMINATION: GENERAL: This is a well-developed, well-nourished 83-year-old gentleman that is extremely hard of hearing, placing his current pain score at 4/10. HEENT: Normocephalic, atraumatic. Extraocular eye muscles are intact. Mucous membranes are moist. Again, he has hearing aids in bilateral ears. EXTREMITIES: No clubbing, no cyanosis, no edema. MUSCULOSKELETAL: He has tenderness in his lumbosacral region of his spine, radiates into his hip, down his left leg today. Lower extremity strength judged to be 5/5 in all major muscle groups. He has an antalgic gait and uses a cane. ASSESSMENT: 1. Symptomatic lumbar radiculopathy. 2. Spinal stenosis of lumbar spine. 3. Facet arthroscopy of the lumbar spine. 4. Displacement of the lumbar intervertebral disk with radiculopathy. 5. Chronic intractable pain. We reviewed the fact that opiate medications are being used to provide analgesia adequate to support activities of daily living, not attempting to achieve a specific pain score on the 0-10 Visual Analog Scale. The current opiate medications are providing sufficient analgesia to allow the patient to participate in activities of daily living. The patient is not exhibiting any aberrant behavior suggestive of drug diversion. The patient is not having any adverse reactions to medications. The patient is not suffering from daytime somnolence or mental acuity changes. The patient is managing opiate-induced constipation with appropriate xkor-pcm-vxkupxx agents and dietary considerations. The patient was counseled on concern for caution with operating a motor vehicle while using opiate medications. PLAN: 1. We discussed treatment options with the patient today. The patient is doing quite well on his current regimen. He feels the weather does increase his pain, but overall he feels better than he did last year at this time. We will refill his oxycodone 5 mg, allowing him 2 tablets 3 times a day, quantity 180. These will be sent electronically by Dr. Jus Lal to his [facility] for 3 months. The patient instructed to call for an appointment when he fills his last prescription. 2. We did refill his gabapentin. The patient takes 900 mg 3 times a day, #[address] [place] [address] PAIN MANAGEMENT CONSULTATION Name: GABRIEL MUÑIZ Room #: [facility] ROSAMARIA Azul#: [id number] Admission: 08/18/19 Attend Phys: Cherie Olmedo Discharge: Date of : 37 Report #: [id number] with 2 additional [facility] 3. The patient instructed to call when he fills his last prescription. The patient is seen in collaboration with Dr. Jus Lal. <ELECTRONICALLY SIGNED> By: Cherie Olmedo 08/19/19 0854 1104 [id number] Cherie Olmedo /nt
== END ==
LOC: PAIN 06:49
DX: M51.16 Intervertebral disc disorders with radiculopathy, lumbar region (principal); M48.061 Spinal stenosis, lumbar region without neurogenic claudication; M25.551 Pain in right hip; M25.552 Pain in left hip; G89.29 Other chronic pain; Z79.899 Other long term (current) drug therapy

== ENCOUNTER → 2019-11-10 | Outpatient (CLI) | payer OTHER, BC ==
--- NOTE | 2019-11-11 11:55 | HPC ---
[facility] [place] [address] [address] PAIN MANAGEMENT CONSULTATION Name: GABRIEL MUÑIZ Room #: REG [facility] Christopher.#: [id number] Admission: 11/10/19 Attend Phys: Jus Lal DO Discharge: Date of : 37 Report #: [id number] THIS REPORT FOR: cc: Calixto Coley II, MD, II,Jus Cordova MD, DO ~ DATE OF SERVICE: 11/10/2019 REFERRING PHYSICIAN: Calixto Coley MD CHIEF COMPLAINT: Low back pain, bilateral hip pain. HISTORY OF PRESENT ILLNESS: This is a Telehealth visit, which began at 11:48 and continued until 12:09. As you know, this is a very pleasant 84-year-old male, who is being evaluated by Telehealth evaluation for continuation of medication management. We have stabilized the patient on a dose of oxycodone. He takes for pain control with good efficacy. His last reported pain score 4/10. Today, he is reporting a pain score 2/10, which is a significant improvement. He states he has lost a significant amount of weight and is participating in daily exercise activity including the use of a treadmill for 20 minutes a day up to 4 times a week. He is very pleased with response to the weight loss and the increasing exercise and this in combination with medications have provided good and prolonged benefit. He has requested refill of the medications be provided today. We have made today's Telehealth visit as the patient does have significant underlying COPD and emphysema, which would place him at high risk to be seen in our clinic due to the COVID virus restrictions. We had a very enjoyable discussion with the patient today about his ongoing exercise programs, his weight loss and the medications. He is denying side effects of sleepiness, disorientation and confusion. He wishes to continue medication at this time. ALLERGIES: No known drug allergies. CURRENT MEDICATIONS: Gabapentin 900 mg t.i.d., oxycodone 10 mg t.i.d., magnesium oxide 1 tab per day, carvedilol 6.25 mg once a day, omega-3 fish oil 1200 mg per day, vitamin B, vitamin C complex, vitamin D6 complex and aspirin 81 mg. SOCIAL HISTORY: The patient is a reformed smoker. He denies IV or illicit drug use. Denies any chronic alcohol use. He is retired. He is accompanied by his on this Telehealth conference today. PQRS: The patient has known arthritic changes of the lumbar spine and bilateral hips. No rheumatoid arthritis. He is placing his pain intensity today 2/10. He is not a fall risk, has not had fallen in the last 3 months, but he does [address] [address] PAIN MANAGEMENT CONSULTATION Name: GABRIEL MUÑIZ Hu Room #: REG ROSAMARIA Azul#: [id number] Admission: 11/10/19 Attend Phys: Jus Lal DO Discharge: Date of : 37 Report #: [id number] utilize an ambulatory device in the form of a cane. He is not on blood thinners, but is treated for hypertension. He is on chronic opioids with a low opioid addiction potential. Pain impact score today 5/70. PHYSICAL EXAMINATION: VITAL SIGNS: Unobtainable as the patient does not have the capability of measuring blood pressure, pulse rate, or oxygen saturation. GENERAL: Well-developed, well-nourished 84-year-old male. He is reporting pain today at 2/10. RESPIRATORY: The patient is able to complete sentences without difficulty. He does have some minor audible wheezing noted on the telephone conference today. He does not appear to be short of breath during our conversation. There is no noted cough or wheezing during our conference today. MUSCULOSKELETAL: The patient reports palpatory tenderness over the lumbar spine. No spinous process tenderness. He states his gait is typical for him, which is slightly antalgic typically favoring his left lower extremity. He reports no weakness in the legs bilaterally. ASSESSMENT: 1. Symptomatic lumbar radiculopathy. 2. Spinal stenosis of lumbar spine. 3. Displacement of lumbar intervertebral disk with radiculopathy. 4. Lumbosacral spondylosis with radiculopathy. 5. Facet arthropathy of the lumbar spine. 6. Chronic intractable pain. PLAN: 1. The patient and I spent a good portion of our visit today discussing his ongoing medication management. He feels the medications are working beneficially, especially now that he has lost a significant amount of weight and is participating in daily exercise program. He "feels as good as he is ever felt." He is very pleased with the response to the treatment he is currently undergoing and wishes refills of his medications. We have made today's Telehealth conference appointment, so the patient could receive refill of his oxycodone for which he takes 10 mg 3 times a day without any issues. He reports no side effects to medication including somnolence, decreased mental acuity, disorientation and confusion. He requests refills for the next 30 days with plans to follow up with us in November. 2. The patient was provided a prescription of oxycodone 5 mg dose 2 tabs p.o. t.i.d. I have given the patient #180 tablets to release today. Prescription was sent via e-scribe to local pharmacy for 1 month worth of medication. We did receive a confirmation the medications were received and are being processed. 3. The patient was provided prescription of gabapentin 300 mg dose 3 tabs t.i.d., #270, with 1 refill, 1 month worth of medication. 4. Our plan is to see the patient in our clinic on 12/08/2019 at 10:00 a.m. assuming that the restrictions of COVID-19 have been lifted and it is safe for [facility] [address] [place] [address] PAIN MANAGEMENT CONSULTATION Name: GABRIEL MUÑIZ Room #: REG CLI Latha#: [id number] Admission: 11/10/19 Attend Phys: Jus Lal DO Discharge: Date of : 37 Report #: [id number] the patient to be seen in our clinic. If this is not the case, plan will to have the patient undergo Telehealth conference again for that visit. We will determine this just prior to his visit. 5. We are pleased to see the patient is doing well. We encouraged him to continue his exercise program and continue with his weight loss and diet changes. This has significantly improved the patient's pain and has reduced his reliance on medications, both of which were positive findings. We will see him back in 1 month. <ELECTRONICALLY SIGNED> By: Jus Lal DO 11/11/19 1155 [id number] Jus Lal, DO /nt
== END ==
LOC: TELEPC 11:11
DX: M47.27 Other spondylosis with radiculopathy, lumbosacral region (principal); M48.061 Spinal stenosis, lumbar region without neurogenic claudication; M51.16 Intervertebral disc disorders with radiculopathy, lumbar region; M12.88 Other specific arthropathies, not elsewhere classified, other specified site; G89.29 Other chronic pain; M25.552 Pain in left hip; M25.551 Pain in right hip; Z79.891 Long term (current) use of opiate analgesic; Z79.01 Long term (current) use of anticoagulants; Z79.899 Other long term (current) drug therapy

== ENCOUNTER → 2019-12-16 | Outpatient (CLI) | payer OTHER, BC ==
[~2019-12-16] VITALS: Ht 175.3 cm; Wt 84.8 kg
[2019-12-16 12:36] VITALS: BP 128/62
--- NOTE | 2019-12-16 12:43 | NUR ---
Pain Clinic Assessment: 1. History of Osteoarthritis: BACK History of Rheumatoid Arthritis: Not Applicable 2. Height: 5 ft. 9 in. 175.3 cm. Weight: 187.0 lb. oz. 84.823 kg. Patient's BMI: 27.6 3. Vital Signs: BP: 128/62 Pulse: 73 Resp: 14 Temp: 02 Sat: 98 ECG Mon: 4. Pain Intensity: 3 5. Fall Risk: Dizziness: N Needs help standing or walking: N Fallen in the last 3 months: N Fall risk comments: 6. Patient on Blood Thinner: None 7. History of Hypertension: Y 8. Opioid Therapy greater than 6 weeks: Y Opiate Contract Signed: 02/21/16 9. Risk Assessment Tool Provided: 0-low 10. Functional Assessment Tool: 11. Recreational Drug Use: Never Drug Type: Tobacco Use: Former Smoker Tobacco Type: Amount or Packs/day: How Many Years: Alcohol Use: No Frequency: Quant:
--- NOTE | 2019-12-16 15:41 | HPC ---
[facility] [address] [place] [address] PAIN MANAGEMENT CONSULTATION Name: GABRIEL MUÑIZ Room #: REG Josh Azul#: [id number] Admission: 12/16/19 Attend Phys: Jus Lal DO Discharge: Date of : 37 Report #: [id number] THIS REPORT FOR: cc: Calixto Coley II, MD, II,Jus Cordova MD, DO ~ DATE OF SERVICE: 12/16/2019 REFERRING PHYSICIAN: Dr. Calixto Coley. CHIEF COMPLAINT: Low back pain, bilateral lower extremity pain. HISTORY OF PRESENT ILLNESS: As you know, the patient is a very pleasant 84-year-old male who has returned today in followup visit reporting good improvement in analgesic benefit. He states the combination of medications along with weight loss has improved his symptoms considerably. He is now placing pain score of 3/10. He is very pleased with response to the medications and wishes to continue the therapy. He denies side effects of sleepiness, disorientation, confusion, mental slowing or constipation with their use. He states he has been much more active of late even with the COVID restrictions. He feels the combination of exercise, weight loss and medications have provided excellent benefit in overall pain. He returns today for refill on medications. ALLERGIES: No known drug allergies. CURRENT MEDICATIONS: Oxycodone 10 mg 3 times a day, gabapentin 900 mg 3 times a day, magnesium 250 mg once a day, carvedilol 25 mg twice a day, omega-3 fish oil 1 tablet per day, vitamin B12 1000 mcg per day, albuterol 2 puffs q.4 hours p.r.n., ascorbic acid 500 mg twice a day, calcium carbonate 1 tablet per day, vitamin B6 25 mg once a day, vitamin E 400 units once a day, multivitamin 1 tablet per day, and aspirin 81 mg per day. SOCIAL HISTORY: The patient is a reformed smoker. Denies IV or illicit drug use. Denies any chronic alcohol use. He is retired, accompanied by his present in room today. IMAGING STUDIES: No new imaging available. PQRS: The patient has arthritic changes of the lumbar spine, bilateral hips, no rheumatoid arthritis. He is placing current pain score of 3/10. He is not at fall risk, has not had a fall in last 3 months, but does use a cane for ambulation and balance. He is not on blood thinners, but is treated for hypertension. He has been on chronic opioids for an extended period of time. He has a low opiate addiction potential based on our assessment tool. Pain impact 3/70 indicating mild interference of daily activities secondary to pain. [address] [address] PAIN MANAGEMENT CONSULTATION Name: GABRIEL MUÑIZ Room #: REG [facility].#: [id number] Admission: 12/16/19 Attend Phys: Jus Lal DO Discharge: Date of : 37 Report #: [id number] PHYSICAL EXAMINATION: VITAL SIGNS: Blood pressure 128/62, pulse 73, respiratory rate 14 and unlabored. The patient is 98% on room air. Height 5 feet 9 inches tall, weight 187 pounds, BMI calculated 27.6. GENERAL: Well-developed, well-nourished, well-hydrated, 84-year-old male. He appears his stated age. Placing pain score of 3/10. HEENT: Normocephalic and atraumatic. Pupils are equal, round and reactive. Speech fluent. The patient has a significant hearing difficulty and is planning to have new hearing aids placed in January. LUNGS: Decreased breath sounds bilaterally, prolonged expiratory phase, but no wheezing, rhonchi or rales. EXTREMITIES: Show no clubbing, no cyanosis, and no edema. MUSCULOSKELETAL: Lower extremity strength appears symmetrical 5/5. He is intact to light touch from L1 through S2 dermatomes. Seated straight leg raising negative. Supine straight leg raising is positive. Carla's test is negative. Modified Gaenslen's positive for axial low back pain. Ankle clonus negative. Babinski is negative. ASSESSMENT: 1. Symptomatic lumbar radiculopathy. 2. Spinal stenosis of the lumbar spine. 3. Displacement of lumbar intervertebral disk with radiculopathy. 4. Lumbosacral spondylosis with radiculopathy. 5. Degeneration of the lumbar spine. 6. Facet arthropathy of the lumbar spine. 7. Chronic intractable pain. PLAN: 1. The patient returns today in followup visit requesting refill on medications. He feels the combinations of medications along with exercise and weight loss has provided good benefit. He is now placing his pain impact score at 3/70, which is a significant improvement in symptoms from previous evaluations. I am pleased to see the patient is doing well. With this combination of treatment, we recommend to continue his physical activity and weight loss program and will continue the medications as currently prescribed. 2. We reviewed the fact that opiate medications are being used to provide analgesia adequate to support activities of daily living, not attempting to achieve a specific pain score on the 0-10 Visual Analog Scale. The current opiate medications are providing sufficient analgesia to allow the patient to participate in activities of daily living. The patient is not exhibiting any aberrant behavior suggestive of drug diversion. The patient is not having any adverse reactions to medications. The patient is not suffering from daytime somnolence or mental acuity changes. The patient is managing opiate-induced constipation with appropriate [id number] agents and dietary considerations. The patient was counseled on concern for caution with operating [facility] [address] [place] [address] PAIN MANAGEMENT CONSULTATION Name: GABRIEL MUÑIZ Room #: REG ROSAMARIA Christopher.#: [id number] Admission: 12/16/19 Attend Phys: Jus Lal DO Discharge: Date of : 37 Report #: [id number] a motor vehicle while using opiate medications. A physical exam was performed and the patient's functional status was evaluated. All patients with back pain were advised against the bed rest greater than 4 days and were advised to return to normal activities. Pain score assessment was noted and the treatment plan was reviewed with the patient. All current medications, both prescribed and OTC were reviewed and reconciled on the electronic medical record. Tobacco screening was accomplished and smoking cessation was advised when indicated. BMI was noted and diet/exercise modification was recommended for all patients following outside normal parameters. I reviewed with the patient today their responsibilities to safeguard prescription medications, reviewed their responsibility to utilize medications only as prescribed by the physician. They are to seek and receive pain medications only from 1 physician group ( [facility]). They are to use 1 pharmacy and keep the clinic informed if they change pharmacies. Their responsibilities include making followup visits in a timely fashion and to avoid abrupt discontinuation of medication usage. Their responsibilities further include bringing their medications (bottles from the pharmacy with residual pills) to the visit for possible confirmation of pill counts and the patient understands it is their responsibility to submit to random drug screens to ensure both that the medications prescribed are present, and that no other controlled substances are present. All prescriptions provided today were generated electronically. 3. Placement was provided a prescription of oxycodone 5 mg tablet, 2 tablets p.o. t.i.d. I have given the patient #180 tablets to be able to continue the therapy. The patient cannot locate 10 mg tablet in our area and we have been utilizing the 5 mg consistently where he is taking 2 a day without problems. We will continue this therapy. He was given prescriptions to release today, 4 weeks from today and 8 weeks from today and 3 months' worth of medication. All prescriptions sent via e-scribed to local pharmacy. 4. The patient will be continued on gabapentin. He is taking 900 mg 3 times a day. I have given him 300 mg tablets #270 to make the dosing of 900 mg t.i.d. The patient was given his prescription with 2 refills. 5. We will see the patient back in followup visit in 3 months for medication management. We are pleased to see he is doing well. We will see him back in followup. <ELECTRONICALLY SIGNED> By: Jus Lal DO 12/16/19 [id number] Jus Lal DO /nt
== END ==
LOC: PAIN 12-08 06:54
DX: M51.16 Intervertebral disc disorders with radiculopathy, lumbar region (principal); G89.4 Chronic pain syndrome; Z79.891 Long term (current) use of opiate analgesic

== ENCOUNTER → 2020-03-22 | Outpatient (CLI) | payer OTHER, BC ==
[~2020-03-22] VITALS: Ht 175.3 cm; Wt 87.9 kg
--- NOTE | ~2020-03-22 | HPC ---
[facility] [address] [address] PAIN MANAGEMENT CONSULTATION Name: GABRIEL MUÑIZ Room #: REG [facility] Christopher.#: [id number] Admission: 03/22/20 Attend Phys: Jus Lal DO Discharge: Date of : 37 Report #: [id number] THIS REPORT FOR: cc: Calixto Coley II, MD, II,Jus Cordova MD, DO ~ CC: Jus Coley DATE OF SERVICE: 03/22/2020 REFERRING PHYSICIAN: Dr. Calixto Coley CHIEF COMPLAINT: Back pain, bilateral lower extremity pain with paresthesias. HISTORY OF PRESENT ILLNESS: As you know, the patient is a very pleasant 84-year-old male who suffers from multifactorial lumbar radiculopathy due to central canal stenosis, which is progressing to worsen. He is reporting that his function has begun to decline. He is having difficulty with walking around the block. He states he can walk for about 15 minutes on a treadmill, but trying to walk around his block leads to intensification of pain, which causes him to return to home. He returns to our clinic today requesting refill of medications. He is requesting no changes in the therapy. He states that his medications are working beneficially for pain control. He is having no side effects to the therapy including sleepiness, disorientation, confusion or mental slowing. He does have some mild constipation he treats with iuqa-iov-wyssmkf medications successfully. He returns today in followup visit requesting refill on medications at current dosing. ALLERGIES: No known drug allergies. CURRENT MEDICATIONS: Oxycodone 5 mg every 6 hours p.r.n. for pain, gabapentin 900 mg t.i.d., magnesium 250 mg once a day, carvedilol 25 mg b.i.d., omega-3 fish oil 1 tab per day, vitamin B12 1000 mcg per day, albuterol 2 puffs q. 4 hours p.r.n., ascorbic acid 500 mg once a day, calcium carbonate 1 tab per day, vitamin B6 25 mg once a week, vitamin E 400 units twice a week, multivitamin 1 tab per day, aspirin 81 mg per day. SOCIAL HISTORY: The patient denies current tobacco use. Denies IV or illicit drug use. He is retired, accompanied by his , present in the room today. IMAGING: No new imaging available. PQRS: The patient has known arthritic changes of the lumbar spine, bilateral hips, but reports no rheumatoid arthritis. Pain intensity today is 2/10. [place] [address] PAIN MANAGEMENT CONSULTATION Name: GABRIEL MUÑIZ Room #: REG CLI [facility].#: [id number] Admission: 03/22/20 Attend Phys: Jus Lal DO Discharge: Date of : 37 Report #: [id number] a fall risk, but has not had a fall in the last 3 months. He does utilize ambulatory devices and has a cane present with him today. He is not on blood thinners, but is treated for hypertension. He is on chronic opioids with a low opiate addiction potential. Pain impact score reported at 3/70, mild interference of daily activities secondary to pain. PHYSICAL EXAMINATION: VITAL SIGNS: Blood pressure 130/62, pulse is 73, respiratory rate 20 and unlabored. The patient is 100% on room air. Height 5 feet 9 inches tall, weight 193.8 pounds, BMI calculated 28.6. GENERAL: Well-developed, well-nourished, well-hydrated 84-year-old male appearing stated age, pain is rated today 2/10. HEENT: Normocephalic, atraumatic. Pupils equal, round and reactive. EXTREMITIES: Show no clubbing, no cyanosis, and no edema. MUSCULOSKELETAL: Lower extremity strength equal and symmetrical 5/5. Deconditioning noted bilaterally. No notable atrophy when looking at the bulk of the muscle tone in the lower extremities. Seated straight leg raising positive. Supine straight leg raising positive. Carla's test is negative. Gait is antalgic. ASSESSMENT: 1. Symptomatic lumbar radiculopathy. 2. Spinal stenosis of the lumbar spine. 3. Displacement of lumbar intervertebral disk with radiculopathy. 4. Lumbosacral spondylosis with radiculopathy. 5. Degeneration of lumbar spine. 6. Facet arthropathy of the lumbar spine. 7. Chronic intractable pain. PLAN: 1. The patient returns today in followup visit requesting refill for medications. Despite the fact that he is reporting lessening functional capabilities, he states his pain is well controlled with medication management. He wishes to continue therapy at current dosing. We have discussed in the past, making adjustments in the therapy to potentially allow him to function more consistently throughout the daytime as he is reporting "good days and bad days." The patient does not wish to make this change at this time. 2. We reviewed the fact that opiate medications are being used to provide analgesia adequate to support activities of daily living, not attempting to achieve a specific pain score on the 0-10 Visual Analog Scale. The current opiate medications are providing sufficient analgesia to allow the patient to participate in activities of daily living. The patient is not exhibiting any aberrant behavior suggestive of drug diversion. The patient is not having any adverse reactions to medications. The patient is not suffering from daytime somnolence or mental acuity changes. The patient is managing opiate-induced constipation with appropriate ssyf-qjd-ufljmbp agents and dietary [facility] [address] [place] [address] PAIN MANAGEMENT CONSULTATION Name: GABRIEL MUÑIZ Room #: REG Josh White.#: [id number] Admission: 03/22/20 Attend Phys: Jus Lal DO Discharge: Date of : 37 Report #: [id number] considerations. The patient was counseled on concern for caution with operating a motor vehicle while using opiate medications. A physical exam was performed and the patient's functional status was evaluated. All patients with back pain were advised against the bed rest greater than 4 days and were advised to return to normal activities. Pain score assessment was noted and the treatment plan was reviewed with the patient. All current medications, both prescribed and OTC were reviewed and reconciled on the electronic medical record. Tobacco screening was accomplished and smoking cessation was advised when indicated. BMI was noted and diet/exercise modification was recommended for all patients following outside normal parameters. I reviewed with the patient today their responsibilities to safeguard prescription medications, reviewed their responsibility to utilize medications only as prescribed by the physician. They are to seek and receive pain medications only from 1 physician group ([facility]). They are to use 1 pharmacy and keep the clinic informed if they change pharmacies. Their responsibilities include making followup visits in a timely fashion and to avoid abrupt discontinuation of medication usage. Their responsibilities further include bringing their medications (bottles from the pharmacy with residual pills) to the visit for possible confirmation of pill counts and the patient understands it is their responsibility to submit to random drug screens to ensure both that the medications prescribed are present, and that no other controlled substances are present. All prescriptions provided today were generated electronically. 3. The patient was provided a prescription of oxycodone 5 mg dose 1 tab p.o. q. 3-4 hours p.r.n. for pain. I have given the patient #180 tablets with no refills. The patient reports that he was unable to afford the long-acting formulation and thus we had to utilize a lower immediate release formulation due to financial restrictions. He is pleased with the medication and wishes no changes. I have given the patient releases of today, 4 weeks from today, 8 weeks from today, 3 months' worth of medication. 4. The patient was provided a prescription of gabapentin 900 mg total dosing 3 times a day. He was given 300 mg tablets 3 to be taken 3 times a day, #270, with 2 refills, 3 months' worth of medication. 5. We will see the patient back in followup visit in 3 months for medication management, earlier if he wishes to make adjustments or discuss interventional treatments. By: [id number] [id number] Jus Lal DO /nt
[2020-03-22 10:23] VITALS: BP 130/62
--- NOTE | 2020-03-22 10:39 | NUR ---
Pain Clinic Assessment: 1. History of Osteoarthritis: BACK History of Rheumatoid Arthritis: Not Applicable 2. Height: 5 ft. 9 in. 175.3 cm. Weight: 193.8 lb. oz. 87.907 kg. Patient's BMI: 28.6 3. Vital Signs: BP: 130/62 Pulse: 73 Resp: 20 Temp: 02 Sat: 100 ECG Mon: 4. Pain Intensity: 2 5. Fall Risk: Dizziness: N Needs help standing or walking: Y Fallen in the last 3 months: N Fall risk comments: 6. Patient on Blood Thinner: None 7. History of Hypertension: Y 8. Opioid Therapy greater than 6 weeks: Y Opiate Contract Signed: 02/21/16 9. Risk Assessment Tool Provided: 0-low 10. Functional Assessment Tool: 11. Recreational Drug Use: Never Drug Type: Tobacco Use: Former Smoker Tobacco Type: Amount or Packs/day: How Many Years: Alcohol Use: No Frequency: Quant:
== END ==
LOC: PAIN 06:43
PROVIDERS: ATTEND Anesthesiology Pain Medicine
DX: M47.26 Other spondylosis with radiculopathy, lumbar region (principal); M51.16 Intervertebral disc disorders with radiculopathy, lumbar region; G89.4 Chronic pain syndrome; Z79.891 Long term (current) use of opiate analgesic

== ENCOUNTER → 2020-06-07 | Outpatient (CLI) | payer OTHER, BC ==
[~2020-06-07] VITALS: Ht 175.3 cm; Wt 87.8 kg
[2020-06-07 10:11] VITALS: BP 147/70
--- NOTE | 2020-06-07 10:19 | NUR ---
Pain Clinic Assessment: 1. History of Osteoarthritis: BACK History of Rheumatoid Arthritis: Not Applicable 2. Height: 5 ft. 9 in. 175.3 cm. Weight: 193.6 lb. oz. 87.816 kg. Patient's BMI: 28.6 3. Vital Signs: BP: 147/70 Pulse: 81 Resp: 20 Temp: 02 Sat: 97 ECG Mon: 4. Pain Intensity: 3-4 5. Fall Risk: Dizziness: N Needs help standing or walking: Y Fallen in the last 3 months: N Fall risk comments: 6. Patient on Blood Thinner: None 7. History of Hypertension: Y 8. Opioid Therapy greater than 6 weeks: Y Opiate Contract Signed: 02/21/16 9. Risk Assessment Tool Provided: 0-low 10. Functional Assessment Tool: 11. Recreational Drug Use: Never Drug Type: Tobacco Use: Former Smoker Tobacco Type: Amount or Packs/day: How Many Years: Alcohol Use: No Frequency: Quant:
--- NOTE | 2020-06-08 14:06 | HPC ---
[facility] [address] [place] [address] PAIN MANAGEMENT CONSULTATION Name: GABRIEL MUÑIZ Room #: REG [facility].#: [id number] Admission: 06/07/20 Attend Phys: Cherie Olmedo Discharge: Date of : 37 Report #: [id number] THIS REPORT FOR: cc: Calixto Coley II, MD, II,Calixto Olmedo,Cherie MIRANDA ~ CC: Cherie Lal DO DATE OF SERVICE: 06/07/2020 CHIEF COMPLAINT: Bilateral lower extremity pain with paresthesias and low back pain. HISTORY OF PRESENT ILLNESS: This is a very pleasant 84-year-old gentleman who returns to the pain clinic for a refill of his medications that he uses to help treat his ongoing low back pain that does radiate into his left leg, occasionally into his right. He does complain of an aching, numbness, pain, especially at night. He feels that it does keep him awake, rating his pain score today at 3-4. He reports that weather changes as well as walking and prolonged sitting do aggravate his pain. Overall, he feels the medication of gabapentin and oxycodone have been very beneficial in allowing him to be as active as he would like. The patient does report since the COVID outbreak, they have been staying at home only going to doctor's visits and to the grocery store. He does suffer from emphysema and is having difficulty breathing today due to the weather changes and wearing a mask. He reports that he has not been as active as he normally would be. He denies problems with constipation or daytime somnolence, though his reports that he does sleep quite a bit during the day because he does not sleep at night. ALLERGIES: No known drug allergies. CURRENT LIST OF MEDICATIONS: Oxycodone 10 mg t.i.d., gabapentin 900 mg t.i.d., magnesium, carvedilol, fish oil, vitamin B12, ProAir, vitamin C, Caltrate, vitamin E, multivitamin and aspirin. PQRS: 1. He has arthritic changes in his lumbar spine and hips. Denies any rheumatoid arthritis. 2. Height is 5 feet 9 inches, weight is 193, BMI is 28. 3. Vital signs; blood pressure 147/70, pulse is 81, respirations 20, oxygen sat is 97%. 4. Pain score is 3 to 4. 5. Denies dizziness. Does need assistance with walking and [place] [address] PAIN MANAGEMENT CONSULTATION Name: GABRIEL MUÑIZ Room #: REG CLI Latha#: [id number] Admission: 06/07/20 Attend Phys: Cherie Olmedo Discharge: Date of : 37 Report #: [id number] has not fallen in the last 3 months. 6. The patient is not on any blood thinners, but does take medicine for hypertension. 7. Opioid therapy is greater than 6 weeks; therefore, an opioid signed contract is on the chart. Risk assessment is low. Functional assessment is . 8. Recreational drug use, he denies. He is a former smoker and does not drink alcohol. According to the prescription monitoring system, he is filling appropriately. He is due to fill his medications next week, filling them in a timely fashion. His morphine milliequivalent according to the CDC guidelines is 45. PHYSICAL EXAMINATION: GENERAL: This is alert and orientated, very pleasant 84-year-old gentleman who appears his stated age, placing his current pain score at 3-4 today. He is a good historian. HEENT: He is very hard of hearing. Normocephalic, atraumatic. Pupils equal, round and reactive to light. He is wearing a mask. EXTREMITIES: No clubbing, no cyanosis, no edema. MUSCULOSKELETAL: He is deconditioned bilaterally and uses a walker. Straight leg raising is positive. His gait is antalgic. He has pain in the lumbosacral region that radiates into his bilateral legs, greater on the left than the right. ASSESSMENT: 1. Symptomatic lumbar radiculopathy. 2. Spinal stenosis of the lumbar spine. 3. Displacement of lumbar intervertebral disk with radiculopathy. 4. Lumbosacral spondylosis with radiculopathy. 5. Facet arthroscopy of the lumbar spine. 6. Chronic intractable pain. Utilizing scheduled medications. We reviewed the fact that opiate medications are being used to provide analgesia adequate to support activities of daily living, not attempting to achieve a specific pain score on the 0-10 Visual Analog Scale. The current opiate medications are providing sufficient analgesia to allow the patient to participate in activities of daily living. The patient is not exhibiting any aberrant behavior suggestive of drug diversion. The patient is not having any adverse reactions to medications. The patient is not suffering from daytime somnolence or mental acuity changes. The patient is managing opiate-induced constipation with appropriate dstw-zxa-rftzuov agents and dietary considerations. The patient was counseled on concern for caution with operating a motor vehicle while using opiate medications. PLAN: 1. We discussed treatment options with the patient today. He feels the [facility] [address] [place] [address] PAIN MANAGEMENT CONSULTATION Name: GABRIEL MUÑIZ Room #: MELLISA Azul#: [id number] Admission: 06/07/20 Attend Phys: Cherie Olmedo Discharge: Date of : 37 Report #: [id number] medications are very beneficial in controlling his pain and keeping him as active as he would like. He has decreased some of his function due to being at home through the COVID virus, but overall he feels that he is doing quite well on his current regimen. We will have Dr. Jus Lal send electronically his oxycodone 5 mg tablets, patient takes 2 tablets every 8 hours, quantity 180. Scripts sent for refills of 1-week, 5-week and 9 weeks. 2. I will send his gabapentin 900 mg 3 times a day. These are 300 mg tablets. We sent 270 with 2 additional refills. 3. We did discuss taking the flu vaccine as well as the COVID vaccine when it becomes available due to the patient's age. He states he does not believe in taking vaccinations and will continue being safe and using good handwashing. 4. The patient is seen today in collaboration with Dr. Jus Lal. <ELECTRONICALLY SIGNED> By: Cherie Olmedo 06/08/20 1406 1114 1752 Cherie Olmedo /nt
== END ==
LOC: PAIN 06:55
PROVIDERS: ATTEND Clinical Nurse Specialist Adult Health
DX: M51.16 Intervertebral disc disorders with radiculopathy, lumbar region (principal); M47.27 Other spondylosis with radiculopathy, lumbosacral region; M48.061 Spinal stenosis, lumbar region without neurogenic claudication; R20.2 Paresthesia of skin; M79.604 Pain in right leg; M79.605 Pain in left leg; G89.29 Other chronic pain

== ENCOUNTER → 2020-09-20 | Outpatient (CLI) | payer OTHER, BC ==
[~2020-09-20] VITALS: Ht 175.3 cm; Wt 91.4 kg
[2020-09-20 10:42] VITALS: BP 128/75
--- NOTE | 2020-09-20 10:54 | NUR ---
Pain Clinic Assessment: 1. History of Osteoarthritis: BACK History of Rheumatoid Arthritis: Not Applicable 2. Height: 5 ft. 9 in. 175.3 cm. Weight: 201.6 lb. oz. 91.445 kg. Patient's BMI: 29.8 3. Vital Signs: BP: 128/75 Pulse: 65 Resp: 18 Temp: 02 Sat: 98 ECG Mon: 4. Pain Intensity: 3 5. Fall Risk: Dizziness: N Needs help standing or walking: Y Fallen in the last 3 months: N Fall risk comments: 6. Patient on Blood Thinner: None 7. History of Hypertension: Y 8. Opioid Therapy greater than 6 weeks: Y Opiate Contract Signed: 02/21/16 9. Risk Assessment Tool Provided: 0-low 10. Functional Assessment Tool: 11. Recreational Drug Use: Never Drug Type: Tobacco Use: Former Smoker Tobacco Type: Amount or Packs/day: How Many Years: Alcohol Use: No Frequency: Quant:
--- NOTE | 2020-09-20 15:00 | HPC ---
[facility] [address] [place] [address] PAIN MANAGEMENT CONSULTATION Name: GABRIEL MUÑIZ [facility] [id number] Admission: 09/20/20 Attend Phys: Cherie Olmedo Discharge: Date of : 37 Report #: [id number] THIS REPORT FOR: cc: Brijesh TAVAREZ,Calixto Coley II,Calixto Olmedo,Cherie MIRANDA ~ DATE OF SERVICE: 09/20/2020 CHIEF COMPLAINT: Bilateral lower extremity pain and paresthesias and low back pain. HISTORY OF PRESENT ILLNESS: This is a very pleasant 85-year-old gentleman who is significantly hard of hearing. He is here today with his who does help with answering some of the questions due to his hearing issues. Today, the patient is reporting a pain score of 3/10. He believes the oxycodone that he receives from Dr. Lal has been very beneficial in helping his low back pain and sciatic pain as he describes it in his left hip and leg. He describes his pain as an aching, numbness and tingly sensation believes that the gabapentin is also beneficial in helping with that. His reports that if he misses a dose of his oxycodone, his pain does significantly increase. Per his report, his pain is worse with walking, sitting and weather changes. Last week, his pain was significantly increased when it was very cold in the weather changed dramatically. Overall, he denies any problems with constipation as a result of his opioid medication and believes he does not suffer any somnolence from his medicines as well. ALLERGIES: No known drug allergies. CURRENT LIST OF MEDICATIONS: Gabapentin, oxycodone, magnesium, carvedilol, fish oil, vitamin B12, albuterol, vitamin C, calcium, vitamin B6, vitamin E, multivitamin, and aspirin. PQRS: 1. He has osteoarthritic changes in his back and hips. Denies any rheumatoid arthritis. 2. Height is 5 feet 9 inches, weight is 201, BMI is 29. 3. Vital signs; blood pressure 128/75, pulse is 65, respirations 18, oxygen sat is 98%. 4. Pain score is 3/10. 5. Fall risk, denies dizziness, he uses a cane for ambulation and has not fallen in the last 3 months. 6. The patient is not on any blood thinners, but does take medicine for hypertension. 7. His opioid therapy is greater than 6 weeks; therefore, an opioid signed contract is on the chart. Risk assessment is low. Functional assessment is . [address] [address] PAIN MANAGEMENT CONSULTATION Name: GABRIEL MUÑIZ Room #: REG CL Christopher.#: [id number] Admission: 09/20/20 Attend Phys: Cherie Olmedo Discharge: Date of : 37 Report #: [id number] 8. Recreational drug use, he denies. He is a former smoker and does not drink alcohol. According to the prescription monitoring system, the patient is filling appropriately for his medications, filling them in a timely fashion. PHYSICAL EXAMINATION: GENERAL: This is alert and orientated, well-developed, well-nourished, well-hydrated 85-year-old who is significantly hard of hearing, but answering questions appropriately today, rating his pain score at 3/10. He is a good historian. HEENT: Normocephalic and atraumatic. Pupils are equal, round and reactive to light. Again, hard of hearing, wearing a mask. EXTREMITIES: No clubbing, no cyanosis, no edema, tenderness in his knee today. MUSCULOSKELETAL: No noted atrophy in his lower extremities, though he is deconditioned bilaterally and uses a cane. Seated straight leg raising is positive. PATRICIA test is negative. Pain radiates from the lumbosacral region into his left hip, down his left leg. IMPRESSION: 1. Symptomatic lumbar radiculopathy. 2. Spinal stenosis of lumbar spine. 3. Displacement of the lumbar intervertebral disk with radiculopathy. 4. Lumbosacral spondylosis with radiculopathy. 5. Degeneration of the lumbar spine. 6. Osteoarthritis. 7. Chronic intractable pain. 8. Opioid management under written agreement. PLAN: 1. We discussed treatment options with the patient today. The patient reports that he is able to function and perform his activities of daily living while taking his opioid medications, which provide significant analgesia to him. He believes without this medication, he would not be as active. Therefore, Dr. Jus Lal will refill his oxycodone 5 mg tablets, he takes 1-2 every 4 hours, quantity #180, to be released today in 4 weeks and 8 weeks. 2. I will refill his gabapentin. The patient takes 900 mg 3 times a day, #270 sent with 5 additional refills for a total of 6 months of this medication. 3. The patient is not interested in having the COVID vaccine. We did discuss COVID for a significant portion of time. Despite his age, he is not interested in having the vaccine at this time. He remains safe wearing a mask at all times and is very careful when he does go out to the grocery store. [address] [address] PAIN MANAGEMENT CONSULTATION Name: GABRIEL MUÑIZ Room #: REG [facility]#: [id number] Admission: 09/20/20 Attend Phys: Cherie Olmedo Discharge: Date of : 37 Report #: [id number] 4. The patient will return with his in 3 months. The patient was seen in collaboration today with Dr. Jus Lal. <ELECTRONICALLY SIGNED> By: Cherie Olmedo 09/20/20 1500 1143 1223 Cherie Olmedo /ryan
== END ==
LOC: PAIN 06:53
PROVIDERS: ATTEND Clinical Nurse Specialist Adult Health
DX: M51.16 Intervertebral disc disorders with radiculopathy, lumbar region (principal); M47.26 Other spondylosis with radiculopathy, lumbar region; M19.90 Unspecified osteoarthritis, unspecified site; G89.29 Other chronic pain; R20.2 Paresthesia of skin; M48.061 Spinal stenosis, lumbar region without neurogenic claudication; F11.20 Opioid dependence, uncomplicated; Z88.8 Allergy status to other drugs, medicaments and biological substances; Z79.899 Other long term (current) drug therapy

== ENCOUNTER → 2020-12-21 | Outpatient (CLI) | payer OTHER, BC ==
[~2020-12-21] VITALS: Ht 175.3 cm; Wt 93.3 kg
[2020-12-21 09:25] VITALS: BP 131/71
--- NOTE | 2020-12-21 09:31 | NUR ---
Pain Clinic Assessment: 1. History of Osteoarthritis: BACK History of Rheumatoid Arthritis: Not Applicable 2. Height: 5 ft. 9 in. 175.3 cm. Weight: 205.6 lb. oz. 93.260 kg. Patient's BMI: 30.3 3. Vital Signs: BP: 131/71 Pulse: 64 Resp: 18 Temp: 02 Sat: 97 ECG Mon: 4. Pain Intensity: 7 5. Fall Risk: Dizziness: N Needs help standing or walking: Y Fallen in the last 3 months: N Fall risk comments: 6. Patient on Blood Thinner: None 7. History of Hypertension: Y 8. Opioid Therapy greater than 6 weeks: Y Opiate Contract Signed: 02/21/16 9. Risk Assessment Tool Provided: 0-low 10. Functional Assessment Tool: 11. Recreational Drug Use: Never Drug Type: Tobacco Use: Former Smoker Tobacco Type: Amount or Packs/day: How Many Years: Alcohol Use: No Frequency: Quant:
--- NOTE | 2020-12-22 07:07 | HPC ---
[facility] [place] [address] PAIN MANAGEMENT CONSULTATION Name: GABRIEL MUÑIZ [id number] Admission: 12/21/20 Attend Phys: Cherie Olmedo Discharge: Date of : 39 Report #: [id number] THIS REPORT FOR: cc: Calixto Coley II, MD, II,Calixto Olmedo,Cheire MIRANDA ~ DOC #: [id number] cc: Calixto Coley MD, Jus Lal, DO Cherie Olmedo, FAMILIA DATE OF SERVICE: 12/21/2020 CHIEF COMPLAINT: Bilateral lower extremity pain and paresthesias and right shoulder pain. HISTORY OF PRESENT ILLNESS: This is a very pleasant 85-year-old gentleman who has returned today for renewal of his medications. He is here with his as well who does help answer some questions due to the patient's hearing issues. Today, he reports the pain score is slightly higher than his normal due to weather changes at 7/10. He reports his most problematic area today is in his left shoulder. He continues to Biofreeze on this as well as stretching activities, but does also complain of ongoing low back pain that radiates down his left leg and describes his discomfort as an aching, numbness, tingly sensation. Overall, he believes his medication of gabapentin and oxycodone are beneficial in helping reduce his pain. The patient denies any constipation issues and does not suffer from any somnolence. ALLERGIES: No known drug allergies. CURRENT MEDICATIONS: Gabapentin 900 mg t.i.d., oxycodone 10 mg t.i.d. p.r.n., magnesium, carvedilol, fish oil, vitamin B12, albuterol, ascorbic acid, Caltrate, vitamin B6, vitamin E, multivitamin, and aspirin. PQRS: 1. He has arthritic issues in his back, knees and shoulders. Denies any rheumatoid arthritis. Height is 5 feet 9 inches, weight is 205, BMI is 30. 2. Vital signs: 131/71, pulse is 64, respirations 18, oxygen sat is 97%. 3. Pain score 7/10. 4. Denies dizziness. Does use a cane for ambulation and has not fallen in the last 3 months. 5. The patient is not on any blood thinners, but does take medicine for hypertension. Her opioid therapy is greater than six weeks; therefore, an opioid signed contract is on the chart. RISK ASSESSMENT: Low. FUNCTIONAL ASSESSMENT: . [address] [address] PAIN MANAGEMENT CONSULTATION Name: GABRIEL MUÑIZ [id number] Admission: 12/21/20 Attend Phys: Cherie Olmedo Discharge: Date of : 37 Report #: [id number] RECREATIONAL DRUG USE: He denies. He is not a smoker and does not drink alcohol. According to the prescription monitoring system, the patient is slightly past due to fill his prescriptions, filling them in a timely fashion from one pharmacy only and one provider. His morphine mEq is 45 MME. We will collect a random drug screen on this patient at his next visit. PHYSICAL EXAMINATION: GENERAL: This is alert and orientated well-developed, well-nourished 85-year-old gentleman who appears his stated age, rating his pain score at 7/10 today. HEENT: Normocephalic, atraumatic. He is very hard of hearing. He is wearing a mask. EXTREMITIES: No clubbing, no cyanosis. No appreciable edema. MUSCULOSKELETAL: His lower extremity strength is symmetrical at 5/5, though deconditioned bilaterally. Seated straight leg raising is positive. Carla test is negative. Gait is slightly antalgic, uses a cane for ambulation. Tenderness in his right shoulder, though able to move his shoulder in all range of motion planes with slight increase in pain. IMPRESSION: 1. Symptomatic lumbar radiculopathy. 2. Spinal stenosis of lumbar spine. 3. Displacement of lumbar intervertebral disk with radiculopathy. 4. Lumbosacral spondylosis with radiculopathy. 5. Degeneration of the lumbar spine. 6. Facet arthroscopy of the lumbar spine. 7. Chronic intractable pain. 8. Osteoarthritis. 9. Opioid medications under written agreement. PLAN: 1. We discussed treatment options with the patient today. Overall, the patient believes his oxycodone and gabapentin are very beneficial in helping with his neuropathy as well as his pain. He would like to continue this medication today. We will have Dr. Jus Lal send oxycodone 5 mg tablets two tablets every eight hours, #180 for today, release 4-week release and 8-week release. 2. The patient will continue his gabapentin 900 mg 3 times a day. He finds these beneficial in helping with his radicular symptoms as well. 3. We did discuss that he uses Biofreeze on his shoulder. I encouraged him that he may use this more than one time a day or also use Voltaren gel. He feels that that medication would be beneficial in helping some of his arthritic joints. 4. The patient is not interested in a COVID vaccine, does continue to wear a [facility] [address] [place] [address] PAIN MANAGEMENT CONSULTATION Name: GABRIEL MUÑIZ Room #: REG [facility]#: [id number] Admission: 12/21/20 Attend Phys: Cherie Olmedo Discharge: Date of : 37 Report #: [id number] mask and reports being healthy by taking vitamins and not interested in the vaccine at this time. Time spent with the patient in consultation, reviewing his recent studies, clinical notes and physician reports, physical examination and correlation of findings and medical documentation to determine possible treatment options, 15 minutes. Time spent preparing for appointment, reviewing prescription monitoring reports, reviewing previous records and propose treatment options and reviewing current medications, 5. Time spent preparing and sending electronic prescriptions with collaborating physician, Dr. Jus Lal and documentation of visit and plan of treatment, 5 minutes. Total time spent 25 minutes. FAMILIA Delong/LUIS <ELECTRONICALLY SIGNED> By: Cherie Olmedo 12/22/20706 26 Cherie Olmedo /ryan
== END ==
LOC: PAIN 07:06
PROVIDERS: ATTEND Clinical Nurse Specialist Adult Health
DX: M51.16 Intervertebral disc disorders with radiculopathy, lumbar region (principal); M47.27 Other spondylosis with radiculopathy, lumbosacral region; M48.061 Spinal stenosis, lumbar region without neurogenic claudication; G89.4 Chronic pain syndrome; M19.90 Unspecified osteoarthritis, unspecified site; Z79.891 Long term (current) use of opiate analgesic; Z79.899 Other long term (current) drug therapy

== ENCOUNTER → 2021-03-23 | Outpatient (CLI) | payer OTHER, BC ==
[~2021-03-23] MED LIST changes: +NEBULIZER MISCELL
== END ==
LOC: SJCVCIMAG 07:42
PROVIDERS: ATTEND Internal Medicine
DX: I08.8 Other rheumatic multiple valve diseases (principal); I49.3 Ventricular premature depolarization; I42.9 Cardiomyopathy, unspecified; I42.8 Other cardiomyopathies; E78.5 Hyperlipidemia, unspecified; G47.33 Obstructive sleep apnea (adult) (pediatric); E66.9 Obesity, unspecified; Z79.899 Other long term (current) drug therapy; Z87.891 Personal history of nicotine dependence; Z72.89 Other problems related to lifestyle

== ENCOUNTER → 2021-03-24 | Outpatient (CLI) | payer OTHER, BC ==
[~2021-03-24] VITALS: Ht 172.7 cm; Wt 88.9 kg
[2021-03-24 10:39] VITALS: BP 140/68
--- NOTE | 2021-03-24 10:41 | NUR ---
Pain Clinic Assessment: 1. History of Osteoarthritis: BACK History of Rheumatoid Arthritis: Not Applicable 2. Height: 5 ft. 8 in. 172.7 cm. Weight: 196.0 lb. oz. 88.905 kg. Patient's BMI: 29.8 3. Vital Signs: BP: 140/68 Pulse: 75 Resp: 16 Temp: 02 Sat: 97 ECG Mon: 4. Pain Intensity: 7 5. Fall Risk: Dizziness: N Needs help standing or walking: N Fallen in the last 3 months: N Fall risk comments: 6. Patient on Blood Thinner: None 7. History of Hypertension: Y 8. Opioid Therapy greater than 6 weeks: Y Opiate Contract Signed: 02/21/16 9. Risk Assessment Tool Provided: 0-low 10. Functional Assessment Tool: 11. Recreational Drug Use: Never Drug Type: Tobacco Use: Former Smoker Tobacco Type: Amount or Packs/day: How Many Years: Alcohol Use: No Frequency: Quant:
== END ==
LOC: PAIN 08:22
PROVIDERS: ATTEND Clinical Nurse Specialist Adult Health
DX: M47.16 Other spondylosis with myelopathy, lumbar region (principal); M48.061 Spinal stenosis, lumbar region without neurogenic claudication; M51.16 Intervertebral disc disorders with radiculopathy, lumbar region; Z79.891 Long term (current) use of opiate analgesic; Z79.899 Other long term (current) drug therapy

== ENCOUNTER → 2021-06-20 | Outpatient (CLI) | payer OTHER, BC ==
[~2021-06-20] VITALS: Ht 172.7 cm; Wt 86.2 kg
[2021-06-20 12:56] VITALS: BP 146/77
--- NOTE | 2021-06-20 13:00 | NUR ---
Pain Clinic Assessment: 1. History of Osteoarthritis: BACK History of Rheumatoid Arthritis: Not Applicable 2. Height: 5 ft. 8 in. 172.7 cm. Weight: 190.0 lb. oz. 86.184 kg. Patient's BMI: 28.9 3. Vital Signs: BP: 146/77 Pulse: 88 Resp: 16 Temp: 02 Sat: 96 ECG Mon: 4. Pain Intensity: 4 5. Fall Risk: Dizziness: N Needs help standing or walking: N Fallen in the last 3 months: N Fall risk comments: 6. Patient on Blood Thinner: None 7. History of Hypertension: Y 8. Opioid Therapy greater than 6 weeks: Y Opiate Contract Signed: 02/21/16 9. Risk Assessment Tool Provided: 0-low 10. Functional Assessment Tool: 11. Recreational Drug Use: Never Drug Type: Tobacco Use: Former Smoker Tobacco Type: Amount or Packs/day: How Many Years: Alcohol Use: No Frequency: Quant:
--- NOTE | 2021-06-21 08:15 | HPC ---
[facility] [place] [address] PAIN MANAGEMENT CONSULTATION Name: GABRIEL MUÑIZ Room #: REG Josh Azul#: [id number] Admission: 06/20/21 Attend Phys: Jus Lal DO Discharge: Date of : 37 Report #: [id number] THIS REPORT FOR: cc: ANTONINA OSEI M.D, JEAN-PHILIPPE E. M.D Johnson, James E. DO ~ cc: Dr. Calixto Coley DATE OF SERVICE: 06/20/2021 REFERRING PHYSICIAN: Dr. Calixto Coley CHIEF COMPLAINT: Low back pain, bilateral lower extremity pain with paresthesias. HISTORY OF PRESENT ILLNESS: As you know, the patient is a very pleasant 85-year-old male returning in followup visit with low back pain, bilateral lower extremity pain with paresthesias. The patient is indicating pain level of about 4/10. He states his pain is aching, numbness, tingling in sensation, exacerbated with walking and sitting and standing, improves with rest and medication management. He returns today in followup visit requesting a refill on medications. He is denying side effects of sleepiness, disorientation, confusion, mental slowing or constipation with their use. He feels that the medications are beneficial allowing him to go about his activities of daily living without significant pain interference. The patient reports that he recently made a move to a new facility and this is reducing his daily activities and upkeep of his home and he feels his pain has begun to improve. They returned today in followup visit requesting refill of medications. ALLERGIES: No known drug allergies. CURRENT MEDICATIONS: Oxycodone 10 mg 3 times a day, gabapentin 900 mg 3 times a day, magnesium 250 mg once a day, carvedilol 25 mg b.i.d., omega-3 fish oil 1 tab per day, vitamin B12 of 1000 mcg per day, albuterol 2 puffs q. 4 hours p.r.n., ascorbic acid 500 mg twice a day, calcium carbonate 1 tab per day, vitamin B6 25 mg per day, vitamin E 400 units per day, multivitamin 1 tab per day, aspirin, 81 mg per day. SOCIAL HISTORY: The patient is a reformed smoker. Denies IV or illicit drug use. Denies any chronic alcohol use. He is accompanied by his , present in room today. They are both retired. IMAGING: No new imaging available. PQRS: The patient has known arthritic changes of the lumbar spine, bilateral hips. No rheumatoid arthritis. He is placing his current pain today at 4/10. He is not a fall risk, has not had a fall in last 3 months, though he does use a [address] [address] PAIN MANAGEMENT CONSULTATION Name: ANTONINOGABRIEL Hu Room #: REG Josh Azul#: [id number] Admission: 06/20/21 Attend Phys: Jus Lal DO Discharge: Date of : 37 Report #: [id number] cane for ambulation. He is not on blood thinners, but is treated for hypertension. He is on chronic opioids, has a low opioid addiction potential based on assessment tool. Pain impact , mild, near no interference of daily activities secondary to pain. PHYSICAL EXAMINATION: VITAL SIGNS: Blood pressure 146/77, pulse 88, respiratory rate 16 and unlabored. The patient is 96% on room air. Height 5 feet 8 inches tall, weight 190 pounds, BMI calculated 28.9. GENERAL: Well-developed, well-nourished, well-hydrated 85-year-old male appearing stated age. He is in no acute distress. Awake, alert and oriented x3. Pain score is 4/10. HEENT: Normocephalic, atraumatic. Pupils are equal. He is wearing a mask in compliance with COVID-19 regulations and hospital policy. He is very hard of hearing. EXTREMITIES: Show no clubbing, no cyanosis, no edema. MUSCULOSKELETAL: Lower extremity strength appears symmetrical 5/5. Deconditioning is noted bilaterally. Seated straight leg raising negative. Supine straight leg raising is positive. Fabere's test is negative. Modified Gaenslen's positive for axial low back pain. Ankle clonus negative. Babinski is negative. Gait antalgic. ASSESSMENT: 1. Symptomatic lumbar radiculopathy. 2. Spinal stenosis of lumbar spine. 3. Displacement of lumbar intervertebral disk with radiculopathy. 4. Lumbosacral spondylosis with radiculopathy. 5. Degeneration of lumbar spine. 6. Osteoarthritis. 7. Chronic intractable pain. 8. Complicated medications with opioid medication management. PLAN: 1. The patient returns today in followup visit requesting refill on medications. He feels medications are working beneficially for pain control. He states that the medications do allow him to go about his activities of daily living without significant pain interference. He is very pleased with response to medication and denying side effects of sleepiness, disorientation, confusion, mental slowing or constipation. He returns requesting refill on medications. 2. We have reviewed the patient's PDMP, both on the [place] and [place] reports. There is no concerning entries. We reviewed the fact that opiate medications are being used to provide analgesia adequate to support activities of daily living, not attempting to achieve a specific pain score on the 0-10 Visual Analog Scale. The current opiate medications are providing sufficient analgesia to allow the patient to [facility] [address] [place] [address] PAIN MANAGEMENT CONSULTATION Name: GABRIEL MUÑIZ Room #: REG Josh Latha#: [id number] Admission: 06/20/21 Attend Phys: Jus Lal DO Discharge: Date of : 37 Report #: [id number] participate in activities of daily living. The patient is not exhibiting any aberrant behavior suggestive of drug diversion. The patient is not having any adverse reactions to medications. The patient is not suffering from daytime somnolence or mental acuity changes. The patient is managing opiate-induced constipation with appropriate [id number] agents and dietary considerations. The patient was counseled on concern for caution with operating a motor vehicle while using opiate medications. A physical exam was performed and the patient's functional status was evaluated. All patients with back pain were advised against the bed rest greater than 4 days and were advised to return to normal activities. Pain score assessment was noted and the treatment plan was reviewed with the patient. All current medications, both prescribed and OTC were reviewed and reconciled on the electronic medical record. Tobacco screening was accomplished and smoking cessation was advised when indicated. BMI was noted and diet/exercise modification was recommended for all patients following outside normal parameters. I reviewed with the patient today their responsibilities to safeguard prescription medications, reviewed their responsibility to utilize medications only as prescribed by the physician. They are to seek and receive pain medications only from 1 physician group ( [facility]). They are to use 1 pharmacy and keep the clinic informed if they change pharmacies. Their responsibilities include making followup visits in a timely fashion and to avoid abrupt discontinuation of medication usage. Their responsibilities further include bringing their medications (bottles from the pharmacy with residual pills) to the visit for possible confirmation of pill counts and the patient understands it is their responsibility to submit to random drug screens to ensure both that the medications prescribed are present, and that no other controlled substances are present. All prescriptions provided today were generated electronically. 3. The patient was provided prescription of oxycodone 5 mg dose 1-2 tabs t.i.d. I have given the patient #180 tablets to release today and 4 weeks from today as well as 8 weeks from today, 3 months' worth of medication. All prescriptions were sent via e-scribe to local pharmacy. 4. The patient was provided prescription of gabapentin 900 mg total t.i.d. I have given a prescription with refills for 6 months's worth of medication. 5. We plan to see the patient back in followup visit in 3 months for medication management. We are hopeful the patient will continue to see good analgesic benefit with the treatment. <ELECTRONICALLY SIGNED> By: Jus Lal DO 06/21/21 0815 [id number] Jus Lal DO /nt
== END ==
LOC: PAIN 12:27
PROVIDERS: ATTEND Anesthesiology Pain Medicine
DX: M51.16 Intervertebral disc disorders with radiculopathy, lumbar region (principal); M47.27 Other spondylosis with radiculopathy, lumbosacral region; M47.26 Other spondylosis with radiculopathy, lumbar region; M48.061 Spinal stenosis, lumbar region without neurogenic claudication; M79.661 Pain in right lower leg; M79.662 Pain in left lower leg; G89.29 Other chronic pain; M19.90 Unspecified osteoarthritis, unspecified site; Z79.899 Other long term (current) drug therapy

== ENCOUNTER → 2021-09-25 | Outpatient (CLI) | payer OTHER, BC | LOC: SJCVC 13:12 | PROVIDERS: ATTEND Internal Medicine Cardiovascular Disease | DX: I42.8 Other cardiomyopathies (principal); I49.3 Ventricular premature depolarization; E78.5 Hyperlipidemia, unspecified; G47.33 Obstructive sleep apnea (adult) (pediatric); C44.90 Unspecified malignant neoplasm of skin, unspecified; C49.9 Malignant neoplasm of connective and soft tissue, unspecified; Z98.890 Other specified postprocedural states; Z87.891 Personal history of nicotine dependence; Z79.899 Other long term (current) drug therapy ==